=== PATIENT | female | born 1960 | race African-American/Black ===

== ENCOUNTER 2016-04-20 12:41 | Emergency (ER) | payer OTHER ==
[~2016-04-20] VITALS: Ht 167.6 cm; Wt 105.0 kg
[~2016-04-20 12:41] MED LIST: ALBU8I INH; AMLO5TAB22 PO; BUSP30TA PO; CELE40TA PO; CIPR500T4 PO; CLON-352 PO; LISI-586 PO; METF500 PO; PERP4TAB8 PO; PROP20TA3 PO; TRAM50 PO; TRAZ100 PO; TRIH5TAB2 PO; VIST50CA PO; ZIPR40 PO
[2016-04-20 12:43] VITALS: BP 189/96; PULSE 98; RESP 16; TEMP 98.1; O2SAT 96
[2016-04-20 12:53] VITALS: BP 162/85
[2016-04-20] MEDS ORDERED: DOXY100C PO (13:55)
[2016-04-20] MEDS ORDERED: BENZ1CAP34 PO (13:55)
--- NOTE | 2016-04-20 13:56 | PD ---
HPI Chief Complaint: Cold / Flu Symptoms Time Seen by Provider: 13:52 Travel History International Travel<30 days: No Contact w/Intl Traveler<30days: No Traveled to known affect area: No History of Present Illness HPI 55-year-old female presents to the emergency department for evaluation of cold symptoms for 1 week. Patient reports reports cough, congestion. She denies any abdominal pain. No fevers or chills. No chest pain. Patient reports history of psychiatric, hypertension, diabetes, chronic shoulder pain. Patient denies any fevers or chills. PFSH Past Medical History Asthma: No Autoimmune Disease: Yes Blood Disorders: No Anxiety: Yes Depression: Yes Heart Rhythm Problems: No Cancer: No Cardiac Catheterization: Yes Cardiovascular Problems: No High Cholesterol: No Chest Pain: Yes Congestive Heart Failure: No COPD: No Diabetes: Yes Patient Takes Glucophage: No Diminished Hearing: No Endocrine: No Gastrointestinal Disorders: No GERD: Yes Genitourinary: No Hepatitis: No Hiatal Hernia: No Hypertension: Yes Musculoskeletal: No Neurologic: No Psychiatric: No Reproductive: No Respiratory: No Immunizations Current: Yes Myocardial Infarction: No Schizophrenia: Yes Sleep Apnea: No Thyroid Disease: No Ulcer: No Tetanus Vaccination: > 5 Years PNEUMOCCOCAL Vaccine (Year): 2008 ?: Not Menopausal: Yes : 2 Para: 2 Miscarriage: 0 : 0 Tubal Ligation: Yes Past Surgical History Cholecystectomy: Yes Coronary Artery Bypass Graft: No Genitourinary Surgery: No Tonsillectomy: Yes Other Surgery: No Family History Family Myocardial Infarction: Yes (FATHER) Social History Alcohol Use: No Tobacco Use: No Substance Use: No Allergies-Medications (Allergen,Severity, Reaction): Coded Allergies: No Known Allergies (Verified , 04/20/16) Reported Meds & Prescriptions Reported Meds & Active Scripts Active Ultram (Tramadol HCl) 50 Mg Tab 50 Mg PO Q6H PRN FOR PAIN Cipro (Ciprofloxacin HCl) 500 Mg Tab 500 Mg PO BID Ventolin Hfa (Albuterol Sulfate) 8 Gm Aero 1 Puff INH ONCE * SHAKE WELL BEFORE USE * Reported Trazodone Hcl (Trazodone HCl) 100 Mg Tab 300 Mg PO HS Glucophage 500 mg (Metformin HCl) 500 Mg Tab 500 Mg PO BIDPC Amlodipine Besylate 5 mg (Amlodipine Besylate) 5 Mg Tab 1 Tab PO DAILY Propranolol (Propranolol HCl) 20 Mg Tab 20 Mg PO BID Perphenazine 4 mg (Perphenazine) 4 Mg Tab 4 Mg PO QID Buspar (Buspirone HCl) 30 Mg Tab 30 Mg PO TID Zestoretic 20/12.5 (Lisinopril/Hctz 20 mg/12.5 mg) 20 Mg/12.5 Mg Tab 1 Tab PO DAILY Clonidine Hcl (Clonidine HCl) 0.1 Mg Tab 0.1 Mg PO TID Vistaril 50 MG CAP (Hydroxyzine Pamoate) 50 Mg Cap 50 Mg PO TID Artane (Trihexyphenidyl HCl) 5 Mg Tab 5 Mg PO BID Celexa (Citalopram Hydrobromide) 40 Mg Tab 20 Mg PO DAILY Geodon (Ziprasidone) 40 Mg Cap 60 Mg PO BID Review of Systems Except as stated in HPI: all other systems reviewed are Neg Physical Exam Narrative GENERAL: Well-developed well-nourished female patient, ambulatory. Afebrile. Vital signs stable. SKIN: Warm and dry. HEAD: Normocephalic. Atraumatic. EYES: No scleral icterus. No injection or drainage. NECK: Supple, trachea midline. No JVD or lymphadenopathy. CARDIOVASCULAR: Regular rate and rhythm without murmurs, gallops, or rubs. RESPIRATORY: Breath sounds equal bilaterally. No accessory muscle use. Lungs sounds are clear to auscultation. GASTROINTESTINAL: Abdomen soft, non-tender, nondistended. MUSCULOSKELETAL: No cyanosis, or edema. BACK: Nontender without obvious deformity. No CVA tenderness. Data Data Last Documented VS Vital Signs Date Time Temp Pulse Resp B/P Pulse Ox O2 Delivery O2 Flow Rate FiO2 04/20/16 12:53 162/85 04/20/16 12:43 98.1 98 16 96 Room Air MDM Medical Decision Making Medical Screen Exam Complete: Yes Emergency Medical Condition: Yes Medical Record Reviewed: Yes Differential Diagnosis Bronchitis versus URI versus pneumonia Narrative Course 55-year-old female presents to the emergency department for evaluation of cold symptoms for 1 week. Physical exam is reassuring. Patient will be discharged with a prescription for doxycycline. She also be given a prescription for benzonatate capsules. She is encouraged to follow with her primary care physician. She is to return for any acute worsening of symptoms. Patient verbalizes agreement and understanding. Diagnosis Primary Impression: Bronchitis Referrals: Primary Care Physician 2 days Patient Instructions: Acute Bronchitis (ED), General Instructions Additional Instructions: Take antibiotic as directed until gone. Take benzonatate capsules as directed as needed for cough. Follow-up with your primary care physician. Return to the emergency department for any acute worsening of symptoms. Med/Other Pt SpecificInfo: Prescription(s) given Scripts Benzonatate 200 Mg [id number] Mg PO TID PRN (COUGH) #21 CAP Ref 0 Prov:Franny Lopez 04/20/16 Doxycycline Hyclate 100 Mg [id number] Mg PO BID #20 CAP Ref 0 Prov:Franny Lopez 04/20/16 Disposition: 01 DISCHARGE HOME Condition: Stable Franny Lopez Apr 20, 2016 13:56
== END 2016-04-20 14:08 | disposition home or self-care (01) ==
LOC: NEPB 12:41
DX: J40 Bronchitis, not specified as acute or chronic (principal); E11.9 Type 2 diabetes mellitus without complications; I10 Essential (primary) hypertension
CPT/HCPCS: 99282

== ENCOUNTER 2016-05-10 21:31 | Emergency (ER) | payer OTHER ==
[~2016-05-10] VITALS: Ht 167.6 cm; Wt 105.0 kg
[~2016-05-10 21:31] MED LIST changes: +BENZ1CAP34 PO; +DOXY100C PO
[2016-05-10 21:32] VITALS: BP 190/99; PULSE 108; RESP 20; TEMP 98.2; O2SAT 96
[2016-05-10] MEDS ORDERED: SODIUM CHLOR 0.9% 1000 ML INJ 1,000 ML IV SCH (21:50)
--- NOTE | 2016-05-10 21:52 | PD ---
HPI Chief Complaint: Flank/Kidney Pain Time Seen by Provider: 21:42 Travel History International Travel<30 days: No Contact w/Intl Traveler<30days: No Traveled to known affect area: No History of Present Illness HPI Patient's 55-year-old female presents with fairly abrupt onset of left flank sharp pain which is constant since about 1500 this afternoon. Patient states she's never had pain like this before. States she has a little burning when she is urinating but not significant. Had some mild nausea yesterday but not nauseous currently. Denies any fevers denies any diarrhea constipation. States she's not had a period since 2004. PFSH Past Medical History Asthma: No Autoimmune Disease: Yes Blood Disorders: No Anxiety: Yes Depression: Yes Heart Rhythm Problems: No Cancer: No Cardiac Catheterization: Yes Cardiovascular Problems: No High Cholesterol: No Chest Pain: Yes Congestive Heart Failure: No COPD: No Diabetes: Yes Patient Takes Glucophage: Yes Diminished Hearing: No Endocrine: No Gastrointestinal Disorders: No GERD: Yes Genitourinary: No Hepatitis: No Hiatal Hernia: No Hypertension: Yes Musculoskeletal: No Neurologic: No Psychiatric: No Reproductive: No Respiratory: No Immunizations Current: Yes Myocardial Infarction: No Schizophrenia: Yes Sleep Apnea: No Thyroid Disease: No Ulcer: No Tetanus Vaccination: Unknown Influenza Vaccination: Yes PNEUMOCCOCAL Vaccine (Year): 2008 ?: Not Menopausal: Yes : 2 Para: 2 Miscarriage: 0 : 0 Tubal Ligation: Yes Past Surgical History Cholecystectomy: Yes Coronary Artery Bypass Graft: No Genitourinary Surgery: No Tonsillectomy: Yes Other Surgery: No Family History Family Myocardial Infarction: Yes (FATHER) Social History Alcohol Use: No Tobacco Use: No Substance Use: No Allergies-Medications (Allergen,Severity, Reaction): Coded Allergies: No Known Allergies (Verified , 04/20/16) Reported Meds & Prescriptions Reported Meds & Active Scripts Active [place] (Hydrocodone-Acetaminophen) 5-325 mg Tab 1 Tab PO Q6H PRN 15 Days Benzonatate 200 Mg Cap 200 Mg PO TID PRN Doxycycline Hyclate 100 Mg Cap 100 Mg PO BID Ultram (Tramadol HCl) 50 Mg Tab 50 Mg PO Q6H PRN FOR PAIN Cipro (Ciprofloxacin HCl) 500 Mg Tab 500 Mg PO BID Ventolin Hfa (Albuterol Sulfate) 8 Gm Aero 1 Puff INH ONCE * SHAKE WELL BEFORE USE * Reported Trazodone HCl 100 Mg Tab 300 Mg PO HS Glucophage 500 mg (Metformin HCl) 500 Mg Tab 500 Mg PO BIDPC Amlodipine Besylate 5 mg (Amlodipine Besylate) 5 Mg Tab 1 Tab PO DAILY Propranolol (Propranolol HCl) 20 Mg Tab 20 Mg PO BID Perphenazine 4 mg (Perphenazine) 4 Mg Tab 4 Mg PO QID Buspar (Buspirone HCl) 30 Mg Tab 30 Mg PO TID Zestoretic 20/12.5 (Lisinopril/Hctz 20 mg/12.5 mg) 20 Mg/12.5 Mg Tab 1 Tab PO DAILY Clonidine HCl ER (Clonidine HCl (Adhd)) 0.1 Mg Tab 0.1 Mg PO TID Vistaril 50 MG CAP (Hydroxyzine Pamoate) 50 Mg Cap 50 Mg PO TID Artane (Trihexyphenidyl HCl) 5 Mg Tab 5 Mg PO BID Celexa (Citalopram Hydrobromide) 40 Mg Tab 20 Mg PO DAILY Geodon (Ziprasidone) 40 Mg Cap 60 Mg PO BID Review of Systems Except as stated in HPI: all other systems reviewed are Neg Physical Exam Narrative GENERAL: [Well-developed well-nourished no apparent distress SKIN: Warm and dry. No rash no lesion to her left flank HEAD: Atraumatic. Normocephalic. EYES: Pupils equal and round. No scleral icterus. No injection or drainage. ENT: No nasal bleeding or discharge. Mucous membranes pink and moist. NECK: Trachea midline. No JVD. CARDIOVASCULAR: Regular rate and rhythm. No murmur appreciated. RESPIRATORY: No accessory muscle use. Clear to auscultation. Breath sounds equal bilaterally. GASTROINTESTINAL: Abdomen soft, non-tender, nondistended. Hepatic and splenic margins not palpable. CVA tenderness in the left flank. No abdominal tenderness. MUSCULOSKELETAL: No obvious deformities. No clubbing. No cyanosis. No edema. NEUROLOGICAL: Awake and alert. No obvious cranial nerve deficits. Motor grossly within normal limits. Normal speech. PSYCHIATRIC: Appropriate mood and affect; insight and judgment normal. Data Data Last Documented VS Vital Signs Date Time Temp Pulse Resp B/P Pulse Ox O2 Delivery O2 Flow Rate FiO2 05/10/16 22:01 30 98 Room Air 05/10/16 21:46 112 05/10/16 21:32 98.2 190/99 Orders Urinalysis - C+S If Indicated (05/10/16 21:43) Ed Urine Pregnancytest Poc (05/10/16 21:43) Complete Blood Count With Diff (05/10/16 21:50) Comprehensive Metabolic Panel (05/10/16 21:50) Lipase (05/10/16 21:50) Lactic Acid (05/10/16 21:50) Prothrombin Time / Inr (Pt) (05/10/16 21:50) Act Partial Throm Time (Ptt) (05/10/16 21:50) Iv Access Insert/Monitor (05/10/16 21:50) Ecg Monitoring (05/10/16 21:50) Oximetry (05/10/16 21:50) Sodium Chlor 0.9% 1000 Ml Inj (Ns 1000 M (05/10/16 21:50) Sodium Chloride 0.9% Flush (Ns Flush) (05/10/16 22:00) Electrocardiogram (05/10/16 21:50) Ketorolac Inj (Toradol Inj) (05/10/16 22:00) Ondansetron Inj (Zofran Inj) (05/10/16 22:15) Ondansetron Inj (Zofran Inj) (05/10/16 22:15) Ct Abd/Pel W/O Iv Contrast (05/10/16 ) Morphine Inj (Morphine Inj) (05/10/16 22:30) Hydromorphone Pf Inj (Dilaudid Pf Inj) (05/10/16 23:45) Labs Laboratory Tests Test 05/10/16 21:45 White Blood Count 9.4 TH/MM3 Red Blood Count 4.58 MIL/MM3 Hemoglobin 11.8 GM/DL Hematocrit 36.9 % Mean Corpuscular Volume 80.5 FL Mean Corpuscular Hemoglobin 25.7 PG Mean Corpuscular Hemoglobin 32.0 % Concent Red Cell Distribution Width 13.8 % Platelet Count 204 TH/MM3 Mean Platelet Volume 9.2 FL Neutrophils (%) (Auto) 64.8 % Lymphocytes (%) (Auto) 23.2 % Monocytes (%) (Auto) 10.7 % Eosinophils (%) (Auto) 0.8 % Basophils (%) (Auto) 0.5 % Neutrophils # (Auto) 6.1 TH/MM3 Lymphocytes # (Auto) 2.2 TH/MM3 Monocytes # (Auto) 1.0 TH/MM3 Eosinophils # (Auto) 0.1 TH/MM3 Basophils # (Auto) 0.0 TH/MM3 CBC Comment DIFF FINAL Differential Comment Prothrombin Time 11.0 SEC Prothromb Time International 1.0 RATIO Ratio Activated Partial 24.6 SEC Thromboplast Time Sodium Level 144 MEQ/L Potassium Level 3.5 MEQ/L Chloride Level 104 MEQ/L Carbon Dioxide Level 30.4 MEQ/L Anion Gap 10 MEQ/L Blood Urea Nitrogen 15 MG/DL Creatinine 1.43 MG/DL Estimat Glomerular Filtration 46 ML/MIN Rate Random Glucose 146 MG/DL Lactic Acid Level 1.3 mmol/L Calcium Level 9.0 MG/DL Total Bilirubin 0.6 MG/DL Aspartate Amino Transf 28 U/L (AST/SGOT) Alanine Aminotransferase 20 U/L (ALT/SGPT) Alkaline Phosphatase 61 U/L Total Protein 8.7 GM/DL Albumin 3.9 GM/DL Lipase 74 U/L [facility] Medical Decision Making Medical Screen Exam Complete: Yes Emergency Medical Condition: Yes Interpretation(s) EKG shows sinus tachycardia with PAC, normal axis normal R-wave progression. No concerning ST T changes. This normal EKG except for PAC. Differential Diagnosis Kidney stone, urinary tract infection, pyelonephritis, diverticulitis. Narrative Course Patient roomed emerged permit initially given Toradol without response. She was given Dilaudid and on revisit she is sleeping soundly in no apparent distress. Last 24 hours Impressions Abdomen/Pelvis CT 05/10/16 0000 Signed Impressions: Service Date/Time: Tuesday, May 10, 2016 23:52 - CONCLUSION: 1. I believe patient's symptoms are due to at 2.5 mm stone which recently passed through the left UVJ into the base of the bladder. There is mild left-sided pelvocaliectasis and hydroureter with mild prominence of the left kidney. 2. Patient is status post cholecystectomy 3. 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 Daniel Hernandez MD This was discussed with the patient and recommended that she have a urine test that she is unable to provide one at this time. She would like to go home currently. Discussed with her need follow-up with a urologist and return to ED criteria. Diagnosis Primary Impression: Kidney stone Referrals: Tony Espino MD Med/Other Pt SpecificInfo: Prescription(s) given Scripts Hydrocodone-Acetaminophen ([place])5-325 mg Tab1 Tab PO Q6H PRN (PAIN) 15 Days Ref 0 Prov:Mario Butterfield MD 05/11/16 Disposition: 01 DISCHARGE HOME Condition: Stable Mario Butterfield MD May 10, 2016 21:52
[2016-05-10] MEDS ORDERED: SODIUM CHLORIDE 0.9% FLUSH 5 ML FLUSH IVF PRN (22:00)
[2016-05-10] MEDS ORDERED: KETOROLAC TROMETHAMINE 30 MG/ML (IVP) VIAL IVP ONE (22:00)
[2016-05-10 22:01] VITALS: RESP 30; O2SAT 98
[2016-05-10] MEDS ORDERED: ONDANSETRON HCL 4 MG/2 ML VIAL IV PUSH ONE (22:15)
[2016-05-10] MEDS ORDERED: ONDANSETRON HCL 4 MG/2 ML VIAL ONE (22:15)
[2016-05-10 22:23] LABS: AUTOMATED NEUTROPHIL # 6.1 TH/MM3 (1.8-7.7); BASOPHIL % 0.5 % (0.0-2.0); EOSINOPHIL # 0.1 TH/MM3 (0-0.4); EOSINOPHIL % 0.8 % (0.0-4.0); HEMATOCRIT 36.9 % (35.0-46.0); HEMO FLAGS DIFF FINAL; LYMPH % 23.2 % (9.0-44.0); LYMPHOCYTE # 2.2 TH/MM3 (1.0-4.8); MEAN CELL VOLUME 80.5 FL (80.0-100.0); MEAN CORPUSCULAR HEMOGLOBIN 25.7 PG (27.0-34.0); MONO % 10.7 % (0.0-8.0); NEUT % 64.8 % (16.0-70.0); PLATELET COUNT 204 TH/MM3 (150-450); RED BLOOD COUNT 4.58 MIL/MM3 (4.00-5.30); RED CELL DISTRIBUTION WIDTH 13.8 % (11.6-17.2); WHITE BLOOD COUNT 9.4 TH/MM3 (4.0-11.0)
[2016-05-10] MEDS ORDERED: MORPHINE SULFATE 8 MG/ML INJ IV PUSH ONE (22:30)
[2016-05-10 23:10] LABS: ALKALINE PHOSPHATASE 61 U/L (45-117); ALT (GPT) 20 U/L (10-53); ANION GAP 10 MEQ/L (5-15); AST (GOT) 28 U/L (15-37); BICARBONATE 30.4 MEQ/L (21.0-32.0); BLOOD UREA NITROGEN 15 MG/DL (7-18); CHLORIDE 104 MEQ/L (98-107); GLOMERULAR FILTRATION RATE 46 ML/MIN (>89); POTASSIUM 3.5 MEQ/L (3.5-5.1); SODIUM (NA) 144 MEQ/L (136-145); TOTAL BILIRUBIN ADULT 0.6 MG/DL (0.2-1.0)
[2016-05-10 23:34] LABS: APTT (PATIENT) 24.6 SEC (24.3-30.1)
[2016-05-10] MEDS ORDERED: HYDROmorphone HCL PF 1 MG/ML VIAL IV PUSH ONE (23:45)
--- NOTE | 2016-05-11 00:14 | RADRPT ---
EXAM DATE/TIME: 05/10/2016 23:52 [facility] COMPARISON: CT ABDOMEN & PELVIS W/O CONTRAST, January 02, 2016, 14:27. INDICATIONS : Left flank pain. ORAL CONTRAST: No oral contrast ingested. RADIATION DOSE: 19.81 CTDIvol (mGy) MEDICAL HISTORY : Hypertension. Cardiovascular disease Gastroesophageal reflux disease.Diabetes SURGICAL HISTORY : Cholecystectomy. Tubal ligation. ENCOUNTER: Initial ACUITY: 1 day PAIN SCALE: 7/10 LOCATION: Left flank TECHNIQUE: Volumetric scanning of the abdomen and pelvis was performed. Using automated exposure control and ad justment of the mA and/or kV according to patient size, radiation dose was kept as low as reasonably achievable to obtain optimal diagnostic quality images. FINDINGS: LOWER LUNGS: The visualized lower lungs are clear. LIVER: Homogeneous density without lesion. There is no dilation of the biliary tree. Patient is status post cholecystectomy. SPLEEN: Normal size without lesion. PANCREAS: Within normal limits. KIDNEYS: Left kidney is slightly more prominent than the right and there is mild pelvocaliectasis and hydroure ter. There is a 2.5 mm stone in the base of the left bladder which likely recently passed the left UV J. ADRENAL GLANDS: Within normal limits. VASCULAR: There is no aortic aneurysm. BOWEL/MESENTERY: The stomach, small bowel, and colon demonstrate no acute abnormality. There is no free intraperitone al air or fluid. ABDOMINAL WALL: Within normal limits. RETROPERITONEUM: There is no lymphadenopathy. BLADDER: No wall thickening or mass. REPRODUCTIVE: Within normal limits. INGUINAL: There is no lymphadenopathy or hernia. MUSCULOSKELETAL: There is some bony bridging along the non-synovial portion of the left SI joint posteriorly. This is stable. No acute fracture. CONCLUSION: 1. I believe patient's symptoms are due to at 2.5 mm stone which recently passed through the left UVJ into the base of the bladder. There is mild left-sided pelvocaliectasis and hydroureter with mild pr ominence of the left kidney. 2. Patient is status post cholecystectomy 3. 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 Daniel Hernandez MD on May 11, 2016 at 0:06 Board Certified Radiologist. This report was verified electronically.
[2016-05-11] MEDS ORDERED: NORC5TAB PO (00:29)
--- NOTE | 2016-05-11 10:21 | EKG ---
Date Performed: 05/10/2016 Time Performed: 22:32:51 PTAGE: 55 years EKG: SINUS TACHYCARDIA WITH OCCASIONAL SUPRAVENTRICULAR PREMATURE COMPLEXES NONSPECIFIC T-WAVE A BNORMALITY ABNORMAL RHYTHM ECG Compared to prior tracing no significant change PREVIOUS TRACING : 01/02/2016 14.53 DOCTOR: Bryson Buckley Interpretating Date/Time 05/11/2016 10:18:14
== END 2016-05-11 00:54 | disposition home or self-care (01) ==
LOC: NEPC 21:31
DX: N20.0 Calculus of kidney (principal); E11.9 Type 2 diabetes mellitus without complications; I10 Essential (primary) hypertension; Z79.84 Long term (current) use of oral hypoglycemic drugs; Z90.49 Acquired absence of other specified parts of digestive tract
CPT/HCPCS: 74176; 80053; 83605; 83690; 84703; 85025; 85610; 85730; 93005; 96374; 96375; 99284; J1170; J1885; J2270; J2405; J7030

== ENCOUNTER 2016-05-15 16:34 | Emergency (ER) | payer OTHER ==
[~2016-05-15] VITALS: Ht 167.6 cm; Wt 110.0 kg
[~2016-05-15 16:34] MED LIST changes: +NORC5TAB PO
[2016-05-15 17:30] VITALS: BP 189/101; PULSE 93; RESP 20; O2SAT 97
--- NOTE | 2016-05-15 17:51 | PD ---
HPI Chief Complaint: Pain: Acute or Chronic Time Seen by Provider: 17:21 Travel History International Travel<30 days: No Contact w/Intl Traveler<30days: No Traveled to known affect area: No History of Present Illness HPI 55-year-old female complains of facial swelling, lower extremity pain and swelling, left sided abdominal pain. Patient was seen in emergency room 5 days ago for left-sided flank pain. Patient had blood tests and CT scan done at that time which showed recently passed stone with hydroureter. Patient was unable to provide urine sample at that time. Patient was discharged with prescription for hydrocodone for pain and advised to follow up with personal physician and urologist. Patient was seen at [facility] 4 days ago and again 2 days ago with persistent symptoms and swelling of the face and extremity with pain and lower extremity. Patient states that she had repeated CT of the abdomen and blood tests and was told that she has UTI. Patient was given prescription of Bactrim DS which she has been taking them. Patient states that she had persistent left-sided abdominal pain and increase in pain of the lower extremity since then. Patient denies any problem with swallowing. Patient states that she has mild intermittent chest pain and shortness of breath also. Patient has history of hypertension, diabetes, GERD, anxiety, depression, schizophrenia. Patient status post tubal ligation, cholecystectomy and tonsillectomy. PFSH Past Medical History Asthma: No Autoimmune Disease: Yes Blood Disorders: No Anxiety: Yes Depression: Yes Heart Rhythm Problems: No Cancer: No Cardiac Catheterization: Yes Cardiovascular Problems: No High Cholesterol: No Chest Pain: Yes Congestive Heart Failure: No COPD: No Diabetes: Yes Patient Takes Glucophage: Yes Diminished Hearing: No Endocrine: No Gastrointestinal Disorders: No GERD: Yes Genitourinary: No Hepatitis: No Hiatal Hernia: No Hypertension: Yes Musculoskeletal: No Neurologic: No Psychiatric: No Reproductive: No Respiratory: No Immunizations Current: Yes Myocardial Infarction: No Schizophrenia: Yes Sleep Apnea: No Thyroid Disease: No Ulcer: No PNEUMOCCOCAL Vaccine (Year): 2008 ?: Not Menopausal: Yes : 2 Para: 2 Miscarriage: 0 : 0 Tubal Ligation: Yes Past Surgical History Cholecystectomy: Yes Coronary Artery Bypass Graft: No Genitourinary Surgery: No Tonsillectomy: Yes Other Surgery: No Family History Family Myocardial Infarction: Yes (FATHER) Social History Alcohol Use: No Tobacco Use: No Substance Use: No Allergies-Medications (Allergen,Severity, Reaction): Coded Allergies: No Known Allergies (Verified , 05/15/16) Reported Meds & Prescriptions Reported Meds & Active Scripts Active Potassium Chloride ER (Potassium Chloride) 10 Meq Cap 10 Meq PO DAILY Lasix (Furosemide) 20 Mg Tab 20 Mg PO DAILY Cipro (Ciprofloxacin HCl) 500 Mg Tab 500 Mg PO BID [place] (Hydrocodone-Acetaminophen) 5-325 mg Tab 1 Tab PO Q6H PRN 15 Days Reported Amlodipine (Amlodipine Besylate) 5 Mg Tab 5 Mg PO DAILY Buspirone (Buspirone HCl) 30 Mg Tab 30 Mg PO TID Clonidine ER 12 HR (Clonidine HCl) 0.1 Mg Tab 0.1 Mg PO TID Vistaril (Hydroxyzine Pamoate) 50 Mg Cap 50 Mg PO TID Zestoretic (Lisinopril-Hctz) 20-12.5 Mg Tab 1 Tab PO DAILY Metformin (Metformin HCl) 500 Mg Tab 500 Mg PO BID With meals Perphenazine 4 Mg Tab 4 Mg PO QID Propranolol (Propranolol HCl) 20 Mg Tab 20 Mg PO TID Bactrim (Sulfamethoxazole-Trimethoprim) 400-80 Mg Tab 1 Tab PO BID Tramadol (Tramadol HCl) 50 Mg Tab 50 Mg PO Q6H PRN Trazodone (Trazodone HCl) 300 Mg Tab 300 Mg PO HS Trihexyphenidyl (Trihexyphenidyl HCl) 5 Mg Tab 5 Mg PO BID Geodon (Ziprasidone) 60 Mg Cap 60 Mg PO BID Gabapentin 300 Mg Cap 300 Mg PO TID Review of Systems General / Constitutional: No: Fever Eyes: No: Visual changes HENT: No: Headaches Cardiovascular: No: Chest Pain or Discomfort Respiratory: No: Shortness of Breath Gastrointestinal: Positive: Abdominal Pain Genitourinary: No: Dysuria Musculoskeletal: Positive: Pain Skin: No Rash Neurologic: No: Weakness Psychiatric: No: Depression Endocrine: No: Polydipsia Hematologic/Lymphatic: No: Easy Bruising Physical Exam Narrative GENERAL: Well-nourished, well-developed patient. SKIN: Warm and dry. HEAD: Normocephalic. EYES: No scleral icterus. No injection or drainage. NECK: Supple, trachea midline. No JVD or lymphadenopathy. CARDIOVASCULAR: Regular rate and rhythm without murmurs, gallops, or rubs. RESPIRATORY: Breath sounds equal bilaterally. No accessory muscle use. GASTROINTESTINAL: Abdomen soft, nondistended. She has mild tenderness on palpation left side abdomen. No rebound tenderness. No mass. MUSCULOSKELETAL: No cyanosis, or edema. BACK: Nontender without obvious deformity. No CVA tenderness. Neurologic exam normal. Data Data Last Documented VS Vital Signs Date Time Temp Pulse Resp B/P Pulse Ox O2 Delivery O2 Flow Rate FiO2 05/15/16 19:53 87 21 05/15/16 19:53 165/100 96 Room Air Orders Electrocardiogram (05/15/16 17:35) Complete Blood Count With Diff (05/15/16 17:35) Comprehensive Metabolic Panel (05/15/16 17:35) Creatine Kinase (Cpk) (05/15/16 17:35) Prothrombin Time / Inr (Pt) (05/15/16 17:35) Act Partial Throm Time (Ptt) (05/15/16 17:35) Lipase (05/15/16 17:35) Urinalysis - C+S If Indicated (05/15/16 17:35) Thyroid Stimulating Hormone (05/15/16 17:35) Chest, Single Ap (05/15/16 17:35) Iv Access Insert/Monitor (05/15/16 17:35) Ecg Monitoring (05/15/16 17:35) Oximetry (05/15/16 17:35) Ct Abd/Pel W Iv Contrast(Rout) (05/15/16 17:40) Troponin I (05/15/16 17:47) Urine Culture (05/15/16 18:30) Iohexol 350 Inj (Omnipaque 350 Inj) (05/15/16 19:32) Labs Laboratory Tests Test 05/15/16 05/15/16 17:51 18:30 White Blood Count 7.2 TH/MM3 Red Blood Count 4.21 MIL/MM3 Hemoglobin 10.8 GM/DL Hematocrit 33.8 % Mean Corpuscular Volume 80.4 FL Mean Corpuscular Hemoglobin 25.7 PG Mean Corpuscular Hemoglobin 32.0 % Concent Red Cell Distribution Width 14.4 % Platelet Count 195 TH/MM3 Mean Platelet Volume 9.0 FL Neutrophils (%) (Auto) 49.8 % Lymphocytes (%) (Auto) 38.2 % Monocytes (%) (Auto) 10.4 % Eosinophils (%) (Auto) 0.5 % Basophils (%) (Auto) 1.1 % Neutrophils # (Auto) 3.6 TH/MM3 Lymphocytes # (Auto) 2.7 TH/MM3 Monocytes # (Auto) 0.7 TH/MM3 Eosinophils # (Auto) 0.0 TH/MM3 Basophils # (Auto) 0.1 TH/MM3 CBC Comment DIFF FINAL Differential Comment Prothrombin Time 11.1 SEC Prothromb Time International 1.0 RATIO Ratio Activated Partial 24.3 SEC Thromboplast Time Sodium Level 142 MEQ/L Potassium Level 3.8 MEQ/L Chloride Level 105 MEQ/L Carbon Dioxide Level 31.0 MEQ/L Anion Gap 6 MEQ/L Blood Urea Nitrogen 17 MG/DL Creatinine 0.95 MG/DL Estimat Glomerular Filtration 74 ML/MIN Rate Random Glucose 93 MG/DL Calcium Level 8.8 MG/DL Total Bilirubin 0.4 MG/DL Aspartate Amino Transf 31 U/L (AST/SGOT) Alanine Aminotransferase 31 U/L (ALT/SGPT) Alkaline Phosphatase 51 U/L Total Creatine Kinase 170 U/L Troponin I LESS THAN 0.02 NG/ML Total Protein 8.0 GM/DL Albumin 3.9 GM/DL Lipase 65 U/L Thyroid Stimulating Hormone 2.440 uIU/ML 3rd Gen Urine Color YELLOW Urine Turbidity HAZY Urine pH 7.5 Urine Specific [place] 1.020 Urine Protein 30 mg/dL Urine Glucose (UA) NEG mg/dL Urine Ketones NEG mg/dL Urine Occult Blood NEG Urine Nitrite NEG Urine Bilirubin NEG Urine Urobilinogen LESS THAN 2.0 MG/DL Urine Leukocyte Esterase MOD Urine WBC 16 /hpf Urine Squamous Epithelial 1 /hpf Cells Urine Mucus FEW /lpf Microscopic Urinalysis Comment CULTURE INDICATED MDM Medical Decision Making Medical Screen Exam Complete: Yes Emergency Medical Condition: Yes Interpretation(s) Last Impressions Abdomen/Pelvis CT 05/15/161739 Signed Impressions: Service Date/Time: Sunday, May 15, 2016 19:22 - CONCLUSION: 1. No acute abnormality seen. 2. Fatty liver. 3. Tiny stone seen in the urinary bladder a few days ago has passed. No recurrent or residual hydronephrosis or hydroureter. 4. 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 Sourav Funk MD Chest X-Ray 05/15/16 1591 Signed Impressions: Service Date/Time: Sunday, May 15, 2016 17:55 - CONCLUSION: No evidence of acute cardiopulmonary disease. Sourav Funk MD 1956 PM. CBC within normal limit. CMP within normal limit. Cardiac enzymes are normal. UA positive for WBC. Differential Diagnosis Differential diagnoses including gastritis, PUD, pancreatitis, cholecystitis, colitis, UTI, pyelonephritis, nephrolithiasis, generalized edema, myalgia arthralgia Narrative Course 55-year-old female with complaints of extremity swelling, facial swelling and persistent left-sided abdominal pain. Patient has been to the emergency room at [facility] recently. Patient is on Bactrim DS for UTI. Diagnosis Primary Impression: UTI (urinary tract infection) Qualified Code: N30.00 - Acute cystitis without hematuria Additional Impression: Edema Qualified Code: R60.9 - Edema, unspecified type Patient Instructions: General Instructions Additional Instructions: Stop Bactrim DS. Cipro as directed. Follow-up with personal physician. Return if worse. Med/Other Pt SpecificInfo: Prescription(s) given, Existing Med Changed, Med Stopped Scripts Hydrocodone-Acetaminophen ([place])5-325 mg Tab1 Tab PO Q6H PRN (PAIN) #20 TAB Prov:Lamberto Oliveros MD 05/15/16 Potassium Chloride ER 10 Meq Cap10 Meq PO DAILY #5 CAP Ref 0 Prov:Lamberto Oliveros MD 05/15/16 Furosemide (Lasix)20 Mg Tab20 Mg PO DAILY #5 TAB Ref 0 Prov:Lamberto Oliveros MD 05/15/16 Ciprofloxacin (Cipro)500 Mg Ore966 Mg PO BID #14 TAB Prov:Lamberto Oliveros MD 05/15/16 Disposition: 01 DISCHARGE HOME Condition: Stable Lamberto Oliveros MD May 15, 2016 17:51
[2016-05-15 18:04] LABS: AUTOMATED NEUTROPHIL # 3.6 TH/MM3 (1.8-7.7); BASOPHIL # 0.1 TH/MM3 (0-0.2); BASOPHIL % 1.1 % (0.0-2.0); EOSINOPHIL % 0.5 % (0.0-4.0); HEMATOCRIT 33.8 % (35.0-46.0); HEMO FLAGS DIFF FINAL; LYMPH % 38.2 % (9.0-44.0); LYMPHOCYTE # 2.7 TH/MM3 (1.0-4.8); MEAN CELL VOLUME 80.4 FL (80.0-100.0); MEAN CORPUSCULAR HEMOGLOBIN 25.7 PG (27.0-34.0); MONO % 10.4 % (0.0-8.0); NEUT % 49.8 % (16.0-70.0); PLATELET COUNT 195 TH/MM3 (150-450); RED BLOOD COUNT 4.21 MIL/MM3 (4.00-5.30); RED CELL DISTRIBUTION WIDTH 14.4 % (11.6-17.2); WHITE BLOOD COUNT 7.2 TH/MM3 (4.0-11.0)
[2016-05-15 18:12] VITALS: O2SAT 97
[2016-05-15] MEDS ORDERED: GABA300C5 PO (18:21)
[2016-05-15] MEDS ORDERED: GEOD60CA PO (18:21)
[2016-05-15] MEDS ORDERED: AMLO5TAB2 PO ×2 (18:21→18:32)
[2016-05-15] MEDS ORDERED: TRIH5TAB2 PO (18:21)
[2016-05-15] MEDS ORDERED: TRAM50TA PO (18:21)
[2016-05-15] MEDS ORDERED: TRAZ300T2 PO (18:21)
--- NOTE | 2016-05-15 18:24 | RADRPT ---
EXAM DATE/TIME: 05/15/2016 17:55 [facility] COMPARISON: CHEST SINGLE AP, May 07, 2015, 19:42. INDICATIONS : Whole body pain, including chest and lower legs with shortness of breath. MEDICAL HISTORY : None. SURGICAL HISTORY : None. ENCOUNTER: Initial ACUITY: 4 - 6 days PAIN SCORE: 4/10 LOCATION: Bilateral chest FINDINGS: A single view of the chest demonstrates the lungs to be symmetrically aerated without evidence of mas s, infiltrate or effusion. The cardiomediastinal contours are unremarkable. Osseous structures are intact. CONCLUSION: No evidence of acute cardiopulmonary disease. Sourav Funk MD on May 15, 2016 at 18:22 Board Certified Radiologist. This report was verified electronically.
[2016-05-15] MEDS ORDERED: BACT400T PO (18:25)
[2016-05-15] MEDS ORDERED: METF500T PO (18:27)
[2016-05-15] MEDS ORDERED: PROP20TA3 PO (18:27)
[2016-05-15] MEDS ORDERED: PERP4TAB8 PO (18:27)
[2016-05-15 18:29] LABS: ANION GAP 6 MEQ/L (5-15); AST (GOT) 31 U/L (15-37); BLOOD UREA NITROGEN 17 MG/DL (7-18); CHLORIDE 105 MEQ/L (98-107); GLOMERULAR FILTRATION RATE 74 ML/MIN (>89); POTASSIUM 3.8 MEQ/L (3.5-5.1); SODIUM (NA) 142 MEQ/L (136-145)
[2016-05-15] MEDS ORDERED: CLON-409 PO (18:31)
[2016-05-15] MEDS ORDERED: NORC5TAB PO ×2 (18:31→20:10)
[2016-05-15] MEDS ORDERED: LISI-586 PO (18:31)
[2016-05-15] MEDS ORDERED: CLON0.1T PO (18:31)
[2016-05-15] MEDS ORDERED: VIST50CA PO (18:31)
[2016-05-15 18:32] LABS: APTT (PATIENT) 24.3 SEC (24.3-30.1); PROTHROMBIN TIME - PATIENT 11.1 SEC (9.8-11.6)
[2016-05-15] MEDS ORDERED: BUSP30TA PO (18:32)
[2016-05-15 18:39] LABS: ALKALINE PHOSPHATASE 51 U/L (45-117); ALT (GPT) 31 U/L (10-53); CREATINE KINASE 170 U/L (26-192); TOTAL BILIRUBIN ADULT 0.4 MG/DL (0.2-1.0)
[2016-05-15 18:45] LABS: BLOOD, URINE NEG (NEG); COMMENT (UR) CULTURE INDICATED; CULTURE IF INDICATED CULTURE INDICATED; GLUCOSE,URINE NEG (NEG); KETONE, URINE NEG (NEG); MUCUS URINE FEW /lpf (OCC); NITRITE,URINE NEG (NEG); PH, URINE 7.5 (5.0-8.5); SQUAMOUS EPITHELIAL CELL URINE 1 /hpf (0-5); URINE COLOR YELLOW (YELLW/STRAW)
[2016-05-15] MEDS ORDERED: IOHEXOL 350 MG/ML 10 ML VIAL (for RAD DIAG) IV ONE (19:32)
--- NOTE | 2016-05-15 19:45 | RADRPT ---
EXAM DATE/TIME: 05/15/2016 19:22 [facility] COMPARISON: CT ABDOMEN & PELVIS W/O CONTRAST, May 10, 2016, 23:52. CT ABDOMEN & PELVIS W CONTRAST, November 072013, 2:11. INDICATIONS : Persistent left sided abdominal pain; status-post cholecystectomy; recent renal stone 5 days ago. IV CONTRAST: 100 cc Omnipaque 350 (iohexol) IV ORAL CONTRAST: No oral contrast ingested. RADIATION DOSE: 19.53 CTDIvol (mGy) MEDICAL HISTORY : Hypertension. Gastroesophageal reflux disease. Diabetes mellitus type 2. SURGICAL HISTORY : Cholecystectomy. Tubal ligation. ENCOUNTER: [place] ACUITY: 4 - 6 days PAIN SCALE: 8/10 LOCATION: Left Abdomen/pelvis TECHNIQUE: Volumetric scanning of the abdomen and pelvis was performed. Using automated exposure control and ad justment of the mA and/or kV according to patient size, radiation dose was kept as low as reasonably achievable to obtain optimal diagnostic quality images. FINDINGS: LOWER LUNGS: The visualized lower lungs are clear. LIVER: Liver is fatty infiltrated. Previous cholecystectomy. SPLEEN: Normal size without lesion. PANCREAS: Within normal limits. KIDNEYS: Normal in size and shape. There is no mass, stone or hydronephrosis. ADRENAL GLANDS: Within normal limits. VASCULAR: There is no aortic aneurysm. BOWEL/MESENTERY: The stomach, small bowel, and colon demonstrate no acute abnormality. There is no free intraperitone al air or fluid. ABDOMINAL WALL: Within normal limits. RETROPERITONEUM: There is no lymphadenopathy. BLADDER: Tiny bladder stone cleared in the interim. No persistent hydronephrosis or hydroureter seen. REPRODUCTIVE: Within normal limits. INGUINAL: There is no lymphadenopathy or hernia. MUSCULOSKELETAL: No acute bony abnormality demonstrated. 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 CONCLUSION: 1. No acute abnormality seen. 2. Fatty liver. 3. Tiny stone seen in the urinary bladder a few days ago has passed. No recurrent or residual hydrone phrosis or hydroureter. 4. 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 Sourav Funk MD on May 15, 2016 at 19:40 Board Certified Radiologist. This report was verified electronically.
[2016-05-15 19:53] VITALS: BP 165/100; PULSE 98; RESP 22; O2SAT 96
[2016-05-15] MEDS ORDERED: CIPR-9 PO (20:07)
[2016-05-15] MEDS ORDERED: POTA10CA PO (20:09)
[2016-05-15] MEDS ORDERED: FURO1TAB62 PO (20:09)
[2016-05-15] MEDS ORDERED: KETOROLAC TROMETHAMINE 30 MG/ML (IVP) VIAL IV PUSH ONE (20:30)
--- NOTE | 2016-05-16 14:14 | EKG ---
Date Performed: 05/15/2016 Time Performed: 16:47:21 PTAGE: 55 years EKG: Sinus rhythm NONSPECIFIC T-WAVE ABNORMALITY BORDERLINE ECG Compared to prior tracing no significant change PREVIOUS TRACING : 05/10/16 DOCTOR: Rupert Rose Interpretating Date/Time 05/16/2016 14:13:53
== END 2016-05-15 20:55 | disposition home or self-care (01) ==
LOC: NEPB 16:34
DX: N39.0 Urinary tract infection, site not specified (principal); R60.9 Edema, unspecified; E11.9 Type 2 diabetes mellitus without complications; I10 Essential (primary) hypertension; M79.606 Pain in leg, unspecified
CPT/HCPCS: 71010; 74177; 80053; 81001; 82550; 83690; 84443; 84484; 85025; 85610; 85730; 87086; 93005; 96374; 99284; J1885; Q9967

== ENCOUNTER 2016-09-04 23:28 | Inpatient (IN) | payer OTHER, MEDICARE ==
[~2016-09-04] VITALS: Ht 167.6 cm; Wt 110.9 kg
[~2016-09-04 23:28] MED LIST changes: -ALBU8I INH; +AMLO5TAB2 PO; -AMLO5TAB22 PO; +BACT400T PO; -BENZ1CAP34 PO; -CELE40TA PO; +CIPR-9 PO; -CIPR500T4 PO; -CLON-352 PO; +CLON-409 PO; -DOXY100C PO; +FURO1TAB62 PO; +GABA300C5 PO; +GEOD60CA PO; -METF500 PO; +METF500T PO; +POTA10CA PO; -TRAM50 PO; +TRAM50TA PO; -TRAZ100 PO; +TRAZ300T2 PO; -ZIPR40 PO
[2016-09-04 23:34] VITALS: BP 171/100; PULSE 133; TEMP 98.3; O2SAT 93
[2016-09-05] VITALS (11 sets, daily range): BP systolic 118–189; BP diastolic 70–95; PULSE 61–103; RESP 18–22; TEMP 96.7–98.1; O2SAT 96–99
[2016-09-05] MEDS ORDERED: RESP: ALBUTEROL 2.5 MG/IPRATROPIUM 0.5 MG NEB (SCH) INH ONE
--- NOTE | 2016-09-05 | PD ---
HPI Chief Complaint: Respiratory Distress Time Seen by Provider: 23:51 Travel History International Travel<30 days: No Contact w/Intl Traveler<30days: No Traveled to known affect area: No History of Present Illness HPI 55-year-old female presents to the emergency department by EMS transportation for shortness of breath and congested cough. Patient states she has had history illness 3 weeks and has completed a course of azithromycin as well as has received a prescription for a steroid and 4 and inhaler. Patient states that she does not feel like she is improving in fact reports that she thinks her symptoms are worsening. Patient has chest tightness associated with cough but does not report any pleuritic pain or chest pain. Patient has history of retention diabetes but denies history of asthma COPD denies tobacco use or alcohol use. Patient's had no lower extremity pain or swelling. Patient does not report any orthopnea or PND. Patient denies fever or chills. Patient has had some scant phlegm production panel yellow. Patient denies hemoptysis. Patient denies injury or fall. No recent long distance travel protracted bedrest or surgery. PFSH Past Medical History Narrative Medical Anxiety depression hypertension diabetes cholecystectomy tonsillectomy family history CAD no tobacco use; nursing notes reviewed Asthma: No Autoimmune Disease: Yes Blood Disorders: No Anxiety: Yes Depression: Yes Heart Rhythm Problems: No Cancer: No Cardiac Catheterization: Yes Cardiovascular Problems: No High Cholesterol: No Chest Pain: Yes Congestive Heart Failure: No COPD: No Diabetes: Yes Patient Takes Glucophage: Yes (metformin 500mg 2100 09/04/16) Diminished Hearing: No Endocrine: No Gastrointestinal Disorders: No GERD: Yes Genitourinary: No Hepatitis: No Hiatal Hernia: No Hypertension: Yes Musculoskeletal: No Neurologic: No Psychiatric: No Reproductive: No Respiratory: No Immunizations Current: Yes Myocardial Infarction: No Schizophrenia: Yes Sleep Apnea: No Thyroid Disease: No Ulcer: No PNEUMOCCOCAL Vaccine (Year): 2008 ?: Not Menopausal: Yes : 2 Para: 2 Miscarriage: 0 : 0 Tubal Ligation: Yes Past Surgical History Cholecystectomy: Yes Coronary Artery Bypass Graft: No Genitourinary Surgery: No Tonsillectomy: Yes Other Surgery: No Family History Family Myocardial Infarction: Yes (FATHER) Social History Alcohol Use: No Tobacco Use: No Substance Use: No Allergies-Medications (Allergen,Severity, Reaction): Coded Allergies: No Known Allergies (Verified , 05/15/16) Reported Meds & Prescriptions Reported Meds & Active Scripts Active Reported Amlodipine (Amlodipine Besylate) 5 Mg Tab 5 Mg PO DAILY Buspirone (Buspirone HCl) 30 Mg Tab 30 Mg PO TID Clonidine ER 12 HR (Clonidine HCl) 0.1 Mg Tab 0.1 Mg PO TID Vistaril (Hydroxyzine Pamoate) 50 Mg Cap 50 Mg PO TID Zestoretic (Lisinopril-Hctz) 20-12.5 Mg Tab 1 Tab PO DAILY Metformin (Metformin HCl) 500 Mg Tab 500 Mg PO BID With meals Propranolol (Propranolol HCl) 20 Mg Tab 20 Mg PO TID Trazodone (Trazodone HCl) 300 Mg Tab 300 Mg PO HS Trihexyphenidyl (Trihexyphenidyl HCl) 5 Mg Tab 5 Mg PO BID [place] (Ziprasidone) 60 Mg Cap 60 Mg PO BID Gabapentin 300 Mg Cap 300 Mg PO TID Review of Systems Except as stated in HPI: all other systems reviewed are Neg Physical Exam Narrative GENERAL: Well-developed well-nourished female appears anxious in respiratory distress SKIN: Warm and dry. HEAD: Normocephalic. EYES: No scleral icterus. No injection or drainage. NECK: Supple, trachea midline. No JVD or lymphadenopathy. CARDIOVASCULAR: Increased Regular rate and rhythm without murmurs, gallops, or rubs. RESPIRATORY: Breath sounds equal bilaterally diminished with expiratory wheezes. No accessory muscle use. GASTROINTESTINAL: Abdomen soft, non-tender, nondistended. MUSCULOSKELETAL: No cyanosis, or edema. BACK: Nontender without obvious deformity. No CVA tenderness. Data Data Last Documented VS Vital Signs Date Time Temp Pulse Resp B/P Pulse Ox O2 Delivery O2 Flow Rate FiO2 09/05/16 02:13 98 18 150/72 98 Nasal Cannula 2 09/04/16 23:34 98.3 Orders Complete Blood Count With Diff (09/04/16 23:51) Comprehensive Metabolic Panel (09/04/16 23:51) B-Type Natriuretic Peptide (09/04/16 23:51) Act Partial Throm Time (Ptt) (09/04/16 23:51) Prothrombin Time / Inr (Pt) (09/04/16 23:51) Magnesium (Mg) (09/04/16 23:51) Ckmb (Isoenzyme) Profile (09/04/16 23:51) Troponin I (09/04/16 23:51) Urinalysis - C+S If Indicated (09/04/16 23:51) Iv Access Insert/Monitor (09/04/16 23:51) Electrocardiogram (09/04/16 23:51) Ecg Monitoring (09/04/16 23:51) Oximetry (09/04/16 23:51) Oxygen Administration (09/04/16 23:51) Chest, Single Ap (09/04/16 23:51) Sodium Chloride 0.9% Flush (Ns Flush) (09/05/16 00:00) Albuterol-Ipratropium Neb (Duoneb Neb) (09/05/16 00:00) Lidocaine Pf 2% Neb (Lidocaine Pf 2% Neb (09/05/16 00:15) Blood Culture (09/05/16 01:27) Ceftriaxone Inj (Rocephin Inj) (09/05/16 01:30) Urine Culture (09/05/16 01:12) Admit Order (Ed Use Only) (09/05/16 ) ^ Saline Lock (09/05/16 02:24) Resp Oxygen Lane C Titrat 1-4 L (09/05/16 ) Notify Dr: Other (09/05/16 02:24) Sodium Chloride 0.9% Flush (Ns Flush) (09/05/16 09:00) Sodium Chloride 0.9% Flush (Ns Flush) (09/05/16 02:30) Labs Laboratory Tests Test 09/05/16 09/05/16 00:01 01:12 White Blood Count 18.3 TH/MM3 Red Blood Count 4.53 MIL/MM3 Hemoglobin 11.5 GM/DL Hematocrit 36.1 % Mean Corpuscular Volume 79.6 FL Mean Corpuscular Hemoglobin 25.4 PG Mean Corpuscular Hemoglobin 31.9 % Concent Red Cell Distribution Width 14.0 % Platelet Count 241 TH/MM3 Mean Platelet Volume 9.3 FL Neutrophils (%) (Auto) 71.7 % Lymphocytes (%) (Auto) 17.5 % Monocytes (%) (Auto) 9.9 % Eosinophils (%) (Auto) 0.0 % Basophils (%) (Auto) 0.9 % Neutrophils # (Auto) 13.1 TH/MM3 Lymphocytes # (Auto) 3.2 TH/MM3 Monocytes # (Auto) 1.8 TH/MM3 Eosinophils # (Auto) 0.0 TH/MM3 Basophils # (Auto) 0.2 TH/MM3 CBC Comment AUTO DIFF Differential Total Cells 100 Counted Neutrophils % (Manual) 72 % Band Neutrophils % 3 % Lymphocytes % 13 % Monocytes % 10 % Neutrophils # (Manual) 14.1 TH/MM3 Metamyelocytes 1 % Myelocytes 1 % Differential Comment FINAL DIFF MANUAL Toxic Vacuolation PRESENT Platelet Estimate NORMAL Platelet Morphology Comment NORMAL Prothrombin Time 10.6 SEC Prothromb Time International 1.0 RATIO Ratio Activated Partial 21.3 SEC Thromboplast Time Sodium Level 140 MEQ/L Potassium Level 3.9 MEQ/L Chloride Level 104 MEQ/L Carbon Dioxide Level 30.6 MEQ/L Anion Gap 5 MEQ/L Blood Urea Nitrogen 13 MG/DL Creatinine 1.04 MG/DL Estimat Glomerular Filtration 67 ML/MIN Rate Random Glucose 157 MG/DL Calcium Level 9.1 MG/DL Magnesium Level 2.1 MG/DL Total Bilirubin 0.3 MG/DL Aspartate Amino Transf 21 U/L (AST/SGOT) Alanine Aminotransferase 22 U/L (ALT/SGPT) Alkaline Phosphatase 62 U/L Total Creatine Kinase 97 U/L Troponin I 0.02 NG/ML B-Type Natriuretic Peptide 47 PG/ML Total Protein 8.5 GM/DL Albumin 3.7 GM/DL Urine Color YELLOW Urine Turbidity CLEAR Urine pH 5.5 Urine Specific [place] 1.021 Urine Protein 30 mg/dL Urine Glucose (UA) NEG mg/dL Urine Ketones NEG mg/dL Urine Occult Blood TRACE Urine Nitrite NEG Urine Bilirubin NEG Urine Urobilinogen LESS THAN 2.0 MG/DL Urine Leukocyte Esterase LARGE Urine RBC 2 /hpf Urine WBC 20 /hpf Urine Squamous Epithelial <1 /hpf Cells Urine Amorphous Sediment RARE Urine Mucus FEW /lpf Microscopic Urinalysis Comment CULTURE INDICATED MDM Medical Decision Making Medical Screen Exam Complete: Yes Emergency Medical Condition: Yes Medical Record Reviewed: Yes Interpretation(s) EKG: Sinus tachycardia rate [address] elevation or injury pattern change or ectopy noted Last Impressions Chest X-Ray 09/04/16 1337 Signed Impressions: Service Date/Time: Sunday, September 04, 2016 23:51 - CONCLUSION: Normal examination. David Kline MD CBC & BMP Diagram 09/05/16 00:01 Vital Signs Date Time Temp Pulse Resp B/P Pulse Ox O2 Delivery O2 Flow Rate FiO2 09/05/16 02:13 98 18 150/72 98 Nasal Cannula 2 09/05/16 02:12 96 Nasal Cannula 2 09/05/16 01:00 103 18 166/84 97 Nasal Cannula 2 09/04/16 23:34 98.3 133 171/100 93 Differential Diagnosis Dyspnea, pneumonia, bronchitis, COPD, CHF, arrhythmia, electronic disturbance, ACS Narrative Course Patient placed on ekg monitor IV access obtained specimen collected and sent for resulting patient's had no recent fever has been on five-day course of azithromycin complains of wheezing and shortness of breath denies chest pain or referred neck jaw back shoulder arm pain. Increased congestion phlegm with some intermittent yellow discoloration no hemoptysis no pleuritic pain. No new lower extremity pain or swelling. Specimen collected and sent for resulting patient administered DuoNeb updraft Patient given nebulized lidocaine Patient showed evidence of clinically of improved however continues complaining of cough congestion and shortness of breath Patient will be admitted for ongoing respiratory management and given additional antibiotic after blood cultures one-time dose of Rocephin 1 g IV piggyback Patient's case discussed with on-call [facility] MD Dr. Edmond will admit to his service Sepsis Criteria SIRS Criteria (2 or more): Heart rate over 90, WBC > 22250, < 4000 or > 10% bands Physician Communication Physician Communication discussed with Dr Hernadez Diagnosis Primary Impression: Bronchitis Additional Impressions: H/O diabetes mellitus H/O: HTN (hypertension) Admitting Information Admitting Physician Requests: Admit Mary Rachel MD Sep 04, 2016 23:59
[2016-09-05] MEDS ORDERED: RESP: LIDOCAINE HCL 2% 2 ML NEB NEB ONE (00:15)
--- NOTE | 2016-09-05 00:27 | RADRPT ---
EXAM DATE/TIME: 09/04/2016 23:51 [facility] COMPARISON: CHEST SINGLE AP, May 15, 2016, 17:55. INDICATIONS : Shortness of breath and cough MEDICAL HISTORY : Diabetes mellitus type II. Hypertension Gastroesophageal reflux disease. SURGICAL HISTORY : Cholecystectomy. Tonsillectomy. Tubal ligation. ENCOUNTER: Initial ACUITY: 3 days PAIN SCORE: 7/10 LOCATION: Bilateral chest FINDINGS: A single view of the chest demonstrates the lungs to be symmetrically aerated without evidence of mas s, infiltrate or effusion. The cardiomediastinal contours are unremarkable. Osseous structures are intact. CONCLUSION: Normal examination. David Kline MD on September 05, 2016 at 0:25 Board Certified Radiologist. This report was verified electronically.
[2016-09-05 00:38] LABS: AUTOMATED NEUTROPHIL # 13.1 TH/MM3 (1.8-7.7); BASOPHIL # 0.2 TH/MM3 (0-0.2); BASOPHIL % 0.9 % (0.0-2.0); HEMATOCRIT 36.1 % (35.0-46.0); LYMPH % 17.5 % (9.0-44.0); LYMPHOCYTE # 3.2 TH/MM3 (1.0-4.8); MEAN CELL VOLUME 79.6 FL (80.0-100.0); MEAN CORPUSCULAR HEMOGLOBIN 25.4 PG (27.0-34.0); MEAN CORPUSCULAR HGB CONC 31.9 % (32.0-36.0); MONO % 9.9 % (0.0-8.0); NEUT % 71.7 % (16.0-70.0); PLATELET COUNT 241 TH/MM3 (150-450); RED BLOOD COUNT 4.53 MIL/MM3 (4.00-5.30); WHITE BLOOD COUNT 18.3 TH/MM3 (4.0-11.0)
[2016-09-05 00:48] LABS: HEMO FLAGS AUTO DIFF
[2016-09-05 00:49] LABS: APTT (PATIENT) 21.3 SEC (24.3-30.1); PROTHROMBIN TIME - PATIENT 10.6 SEC (9.8-11.6)
[2016-09-05 01:13] LABS: ALKALINE PHOSPHATASE 62 U/L (45-117); ALT (GPT) 22 U/L (10-53); ANION GAP 5 MEQ/L (5-15); AST (GOT) 21 U/L (15-37); BICARBONATE 30.6 MEQ/L (21.0-32.0); BLOOD UREA NITROGEN 13 MG/DL (7-18); CHLORIDE 104 MEQ/L (98-107); GLOMERULAR FILTRATION RATE 67 ML/MIN (>89); MAGNESIUM 2.1 MG/DL (1.5-2.5); POTASSIUM 3.9 MEQ/L (3.5-5.1); SODIUM (NA) 140 MEQ/L (136-145); TOTAL BILIRUBIN ADULT 0.3 MG/DL (0.2-1.0)
[2016-09-05 01:14] LABS: CREATINE KINASE 97 U/L (26-192)
[2016-09-05] MEDS ORDERED: cefTRIAXone INJ 1,000 MG in SODIUM CHLORIDE 0.9% INJ 100 ML IV ONE (01:30)
[2016-09-05 01:40] LABS: BLOOD, URINE TRACE (NEG); GLUCOSE,URINE NEG (NEG); KETONE, URINE NEG (NEG); MUCUS URINE FEW /lpf (OCC); NITRITE,URINE NEG (NEG); PH, URINE 5.5 (5.0-8.5); SQUAMOUS EPITHELIAL CELL URINE <1 /hpf (0-5); URINE COLOR YELLOW (YELLW/STRAW)
[2016-09-05 01:43] LABS: COMMENT (UR) CULTURE INDICATED; CULTURE IF INDICATED CULTURE INDICATED
[2016-09-05 01:55] LABS: BANDS 3 % (0-6); METAMYELOCYTES 1 % (0-1); MYELOCYTES 1 % (0-0); NEUTROPHIL # MANUAL DIFF 14.1 TH/MM3 (1.8-7.7); PLATELET ESTIMATE SMEAR NORMAL (NORMAL); POLYS (SEG NEUTROPHILS) 72 % (16-70); TOXIC VACUOLATION PRESENT (NONE SEEN); WBC DIFF SAMPLE 100
[2016-09-05 01:56] LABS: PLATELET MORPHOLOGY NORMAL (NORMAL); SCAN/DIFF FINAL DIFF MANUAL
[2016-09-05] MEDS ORDERED: SODIUM CHLORIDE 0.9% FLUSH 10 ML FLUSH IVF PRN ×2 (02:30)
[2016-09-05] MEDS ORDERED: RESP: ALBUTEROL 2.5 MG/IPRATROPIUM 0.5 MG NEB (SCH) NEB ONE (03:30)
[2016-09-05] MEDS ORDERED: SODIUM CHLORIDE 0.9% FLUSH 10 ML FLUSH IV FLUSH PRN (05:15)
[2016-09-05] MEDS ORDERED: GLUCAGON 1 MG/ML VIAL OTHER PRN (05:30)
[2016-09-05] MEDS ORDERED: DEXTROSE 50% IN WATER 50 ML VIAL(D50) IV PRN (05:30)
[2016-09-05] MEDS ORDERED: hydrOXYzine HCL 50 MG TAB PO PRN (05:30)
[2016-09-05] MEDS ORDERED: LEVOFLOXACIN 750 MG PREMIX INJ 150 ML IV SCH (06:00)
[2016-09-05] MEDS ORDERED: methylPREDNISolone SOD SUCC 125 MG/2 ML VIAL IVP SCH (06:00)
[2016-09-05] MEDS: INSULIN ASPART SUPPLEMENTAL SCALE SQ SCH ×4 (06:55→22:26)
--- NOTE | 2016-09-05 07:39 | HHI.HP ---
HPI Service [facility] Hospitalists Primary Care Physician Alberto Lerma MD Admission Diagnosis Acute bronchitis; sirs; h/o dm; h/o htn Diagnoses: Chief Complaint: cough, sob Travel History International Travel<30 Days: No Contact w/Intl Traveler <30 Da: No Traveled to Known Affected Are: No Sepsis Criteria SIRS Criteria (2 or more): Heart rate over 90, WBC > 45522, < 4000 or > 10% bands Sepsis Criteria (SIRS+source): Infect source susp/known Criteria Outcome: Meets sepsis criteria History of Present Illness This is a 55-year-old female with past medical history as stated below who presents to [facility] complaining of upper retrograde infection symptoms including cough, productive sputum, shortness of breath associated with some wheezing, fevers and chills. The patient states that he went to see her doctor who prescribes her medications that she cannot remember the names of. However she kept getting worst. The patient also complains of some chest pain which is substernal and brought up by coughing. Denies abdominal pain, nausea, vomiting, denies headache, denies dysuria, denies diarrhea. Review of Systems As per history of present illness, other systems reviewed by me and negative Past Family Social History Past Medical History Diabetes mellitus Hypertension Hyperlipidemia Depression Past Surgical History Cholecystectomy Tonsillectomy Tubal ligation Reported Medications Amlodipine (Amlodipine Besylate) 5 Mg Tab 5 Mg PO DAILY Buspirone (Buspirone HCl) 30 Mg Tab 30 Mg PO TID Clonidine ER 12 HR (Clonidine HCl) 0.1 Mg Tab 0.1 Mg PO TID Vistaril (Hydroxyzine Pamoate) 50 Mg Cap 50 Mg PO TID Zestoretic (Lisinopril-Hctz) 20-12.5 Mg Tab 1 Tab PO DAILY Metformin (Metformin HCl) 500 Mg Tab 500 Mg PO BID With meals Propranolol (Propranolol HCl) 20 Mg Tab 20 Mg PO TID Trazodone (Trazodone HCl) 300 Mg Tab 300 Mg PO HS Trihexyphenidyl (Trihexyphenidyl HCl) 5 Mg Tab 5 Mg PO BID Geodon (Ziprasidone) 60 Mg Cap 60 Mg PO BID Gabapentin 300 Mg Cap 300 Mg PO TID Allergies: Coded Allergies: No Known Allergies (Verified , 05/15/16) Active Ordered Medications Current Medications Medications (Trade) Dose Ordered Sig/Myranda Route Start Time Stop Time Status Last Admin (NS Flush) 2 ml BID IV FLUSH 09/05/16 09:00 (NS Flush) 2 ml UNSCH PRN IV FLUSH 09/05/16 05:15 Methylprednisolone Sodium Succinate 40 mg 40 mg Q6HR IVP 09/05/16 06:00 09/05/16 06:14 (Levaquin 750 Mg Premix Inj) 150 ml @ 100 mls/hr Q24H IV 09/05/16 06:00 09/05/16 06:15 (Lovenox Inj) 40 mg Q24H SQ 09/05/16 09:00 (Norvasc) 5 mg DAILY PO 09/05/16 09:00 (Buspar) 30 mg TID PO 09/05/16 09:00 (Neurontin) 300 mg TID PO 09/05/16 09:00 (Inderal) 20 mg TID PO 09/05/16 09:00 (Desyrel) 300 mg HS PO 09/05/16 21:00 (Artane) 5 mg BID PO 09/05/16 09:00 (Geodon) 60 mg BID PO 09/05/16 09:00 (Atarax) 50 mg Q8H PRN PO 09/05/16 05:30 (D50w (Vial) Inj) 50 ml UNSCH PRN IV 09/05/16 05:30 (Glucagon Inj) 1 mg UNSCH PRN OTHER 09/05/16 05:30 (Prinivil) 20 mg DAILY PO 09/05/16 09:00 (Hydrodiuril) 12.5 mg DAILY PO 09/05/16 09:00 Family History Patient's mother had diabetes mellitus Patient's father from breast cancer Patient's brother also with complications from congestive heart failure. Social History She denies smoking ever Denies alcohol intake. Denies illicit drug use The patient is single and has 2 children. Physical Exam Vital Signs Vital Signs Date Time Temp Pulse Resp B/P Pulse Ox O2 Delivery O2 Flow Rate FiO2 09/05/16 06:40 97.4 83 22 189/95 96 09/05/16 05:33 87 19 134/70 99 Nasal Cannula 2 09/05/16 03:30 98 Nasal Cannula 2.00 09/05/16 02:13 98 18 150/72 98 Nasal Cannula 2 09/05/16 02:12 96 Nasal Cannula 2 09/05/16 01:00 103 18 166/84 97 Nasal Cannula 2 09/04/16 23:34 98.3 133 171/100 93 Physical Exam GENERAL: This is a well-nourished, well-developed patient, in no apparent distress. SKIN: No rashes, ecchymoses or lesions. Cool and dry. HEAD: Atraumatic. Normocephalic. No temporal or scalp tenderness. EYES: Pupils equal round and reactive. Extraocular motions intact. No scleral icterus. No injection or drainage. ENT: Nose without bleeding, purulent drainage or septal hematoma. Throat without erythema, tonsillar hypertrophy or exudate. Uvula midline. Airway patent. NECK: Trachea midline. No JVD or lymphadenopathy. Supple, nontender, no meningeal signs. CARDIOVASCULAR: Regular rate and rhythm without murmurs, gallops, or rubs. RESPIRATORY: Bilateral diffuse expiratory wheezing. No rales or rhonchi auscultated. GASTROINTESTINAL: Abdomen soft, non-tender, nondistended. No hepato-splenomegaly , or palpable masses. No guarding. MUSCULOSKELETAL: Extremities without clubbing, cyanosis, or edema. No joint tenderness, effusion, or edema noted. No calf tenderness. Negative Homans sign bilaterally. Moves bilateral lower extremities.. NEUROLOGICAL: Awake and alert but very anxious. Cranial nerves II through XII intact. Motor and sensory grossly within normal limits. Five out of 5 muscle strength in all muscle groups. Normal speech. Laboratory Laboratory Tests Test 09/05/16 09/05/16 00:01 01:12 White Blood Count 18.3 Red Blood Count 4.53 Hemoglobin 11.5 Hematocrit 36.1 Mean Corpuscular Volume 79.6 Mean Corpuscular Hemoglobin 25.4 Mean Corpuscular Hemoglobin 31.9 Concent Red Cell Distribution Width 14.0 Platelet Count 241 Mean Platelet Volume 9.3 Neutrophils (%) (Auto) 71.7 Lymphocytes (%) (Auto) 17.5 Monocytes (%) (Auto) 9.9 Eosinophils (%) (Auto) 0.0 Basophils (%) (Auto) 0.9 Neutrophils # (Auto) 13.1 Lymphocytes # (Auto) 3.2 Monocytes # (Auto) 1.8 Eosinophils # (Auto) 0.0 Basophils # (Auto) 0.2 CBC Comment AUTO DIFF Differential Total Cells 100 Counted Neutrophils % (Manual) 72 Band Neutrophils % 3 Lymphocytes % 13 Monocytes % 10 Neutrophils # (Manual) 14.1 Metamyelocytes 1 Myelocytes 1 Differential Comment FINAL DIFF MANUAL Toxic Vacuolation PRESENT Platelet Estimate NORMAL Platelet Morphology Comment NORMAL Prothrombin Time 10.6 Prothromb Time International 1.0 Ratio Activated Partial 21.3 Thromboplast Time Sodium Level 140 Potassium Level 3.9 Chloride Level 104 Carbon Dioxide Level 30.6 Anion Gap 5 Blood Urea Nitrogen 13 Creatinine 1.04 Estimat Glomerular Filtration 67 Rate Random Glucose 157 Calcium Level 9.1 Magnesium Level 2.1 Total Bilirubin 0.3 Aspartate Amino Transf 21 (AST/SGOT) Alanine Aminotransferase 22 (ALT/SGPT) Alkaline Phosphatase 62 Total Creatine Kinase 97 Troponin I 0.02 B-Type Natriuretic Peptide 47 Total Protein 8.5 Albumin 3.7 Urine Color YELLOW Urine Turbidity CLEAR Urine pH 5.5 Urine Specific [place] 1.021 Urine Protein 30 Urine Glucose (UA) NEG Urine Ketones NEG Urine Occult Blood TRACE Urine Nitrite NEG Urine Bilirubin NEG Urine Urobilinogen LESS THAN 2.0 Urine Leukocyte Esterase LARGE Urine RBC 2 Urine WBC 20 Urine Squamous Epithelial <1 Cells Urine Amorphous Sediment RARE Urine Mucus FEW Microscopic Urinalysis Comment CULTURE INDICATED Date/Time Procedure Status Source Growth 09/05/16 02:05 Aerobic Blood Culture Received Blood Peripheral Pending 09/05/16 02:05 Anaerobic Blood Culture Received Blood Peripheral Pending 09/05/16 01:12 Urine Culture Received Urine Clean Catch Pending Result Diagram: 09/05/16 0001 09/05/16 0001 Imaging Last Impressions Chest X-Ray 09/04/16 9311 Signed Impressions: Service Date/Time: Sunday, September 04, 2016 23:51 - CONCLUSION: Normal examination. David Kilne MD Reviewed by me Septic Shock Reassessment Heart: Regular rate and rhythm Lungs: Other (bilateral expiratory wheezing) Skin: Warm Peripheral Pulses: Bounding Right Radial Bounding Left Radial Capillary Refill: <2 seconds Assessment and Plan Problem List: (1) Sepsis ICD Code: A41.9 Status: Acute Plan: Sepsis present on admission. Vision with tachycardia and leukocytosis. Sepsis likely secondary to UTI and acute bronchitis. Admit the patient to the medical for Continue IV fluids Continue IV Rocephin and add IV azithromycin. (2) UTI (urinary tract infection) ICD Code: N39.0 Status: Acute Plan: IV Rocephin (3) Acute bronchitis ICD Code: J20.9 Status: Acute Plan: Was likely Viral etiology. Will check for H. influenzae mycoplasma pneumonia. Will place on IV Rocephin and azithromycin and IV steroids in the form of Solu- Medrol. (4) SHARRI (acute kidney injury) ICD Code: N17.9 Status: Acute Plan: Likely secondary to prerenal azotemia from dehydration. Continue IV fluids and continue to monitor BUN/creatinine, strict I's and O's and avoid nephrotoxins. (5) Uncontrolled hypertension ICD Code: I10 Status: Acute Plan: Continue home antihypertensive medications which include amlodipine, clonidine, lisinoprilHCTZ. I will also add clonidine as needed for systolic blood pressure more than 160. (6) Anxiety ICD Code: F41.9 Status: Acute Plan: Patient symptoms very anxious and is moving bilateral extremities uncontrollably. I will continue Vistaril, buspirone, trazodone at bedtime, Geodon. Assessment and Plan GI prophylaxis: Place on PPI DVT plexus: SCDs, chemotherapy prophylaxis with Lovenox subcutaneously Code Status Full code Discussed Condition With ED physician, patient. Physician Certification 2 Midnight Certification Type: Admission for Inpatient Services Order for Inpatient Services The services are ordered in accordance with Medicare regulations or non- Medicare payer requirements, as applicable. In the case of services not specified as inpatient-only, they are appropriately provided as inpatient services in accordance with the 2-midnight benchmark. Estimated LOS (days): 2 days is the estimated time the patient will need to remain in the hospital, assuming treatment plan goals are met and no additional complications. Post-Hospital Plan: Not yet determined Problem Qualifiers (1) Sepsis: Qualified Code: A41.9 - Sepsis, due to unspecified organism (2) UTI (urinary tract infection): Qualified Code: N30.00 - Acute cystitis without hematuria (3) Acute bronchitis: Qualified Code: J20.9 - Acute bronchitis, unspecified organism Ed Guzman MD Sep 05, 2016 07:39
[2016-09-05] MEDS ORDERED: RESP: ALBUTEROL 2.5 MG/IPRATROPIUM 0.5 MG NEB (PRN) NEB (07:45)
[2016-09-05] MEDS: AZITHROMYCIN INJ 500 MG in SODIUM CHLOR 0.9% 250 ML INJ 250 ML IV SCH (08:31)
[2016-09-05] MEDS: GABAPENTIN 300 MG CAP PO SCH ×3 (08:32→16:34)
[2016-09-05] MEDS: LISINOPRIL 20 MG TAB PO SCH (08:32)
[2016-09-05] MEDS: PROPRANOLOL HCL 20 MG TAB PO SCH ×3 (08:32→16:28)
[2016-09-05] MEDS: ENOXAPARIN SODIUM 40 MG/0.4 ML SYRINGE SQ SCH (08:32)
[2016-09-05] MEDS: amLODIPine BESYLATE 5 MG TAB PO SCH (08:32)
[2016-09-05] MEDS: busPIRone HCL 10 MG TAB PO SCH ×3 (08:33→16:29)
[2016-09-05] MEDS: SODIUM CHLORIDE 0.9% FLUSH 10 ML FLUSH IV FLUSH SCH ×2 (08:33→22:29)
[2016-09-05] MEDS: HYDROCHLOROTHIAZIDE 25 MG TAB PO SCH (08:33)
[2016-09-05] MEDS ORDERED: SODIUM CHLORIDE 0.9% FLUSH 10 ML FLUSH IV FLUSH SCH (09:00)
[2016-09-05] MEDS ORDERED: CLONIDINE 0.1 MG PO SCH (09:00)
[2016-09-05] MEDS ORDERED: NON-FORMULARY DRUG (Lisinopril-Hctz (Zestoretic) 1 TAB) PO SCH (09:00)
[2016-09-05] MEDS ORDERED: RESP: ALBUTEROL 2.5 MG/IPRATROPIUM 0.5 MG NEB (SCH) INH (10:00)
--- NOTE | 2016-09-05 10:05 | EKG ---
Date Performed: 09/04/2016 Time Performed: 23:54:45 PTAGE: 55 years EKG: SINUS TACHYCARDIA NONSPECIFIC T-WAVE ABNORMALITY ABNORMAL RHYTHM ECG NO PREVIOUS TRACING DOCTOR: Quentin Lim Interpretating Date/Time 09/05/2016 10:03:55
--- NOTE | 2016-09-05 11:32 | MB ---
cc: ELADIO LIZARRAGA M.D. DATE OF CONSULTATION: 09/05/2016 REASON FOR CONSULTATION: Pulmonary consultation. DATE OF : 1960. HISTORY: The patient is a 55-year-old female with past medical history of hypertension, diabetes mellitus, hyperlipidemia, depression, obesity, who presented to [facility] emergency department early this morning with 3-week history of cough productive at times with a yellow phlegm, associated with shortness of breath and intermittent wheezing. The patient also states that her chest hurts with breathing. She denies any constitutional symptoms. However, she reported slight fever a few days ago. She denies any exposure to sick contacts. In addition she denies any prior history of pneumonia. She was told several years ago that she was allergic to dust mites but denies any other environmental allergies. She went to see her primary care doctor who prescribed medication which she does not remember the name of and her condition has been getting worse. She denies any abdominal pain, nausea, vomiting, the patient is a nonsmoker. On the arrival to the emergency room she was tachycardic and chest x-ray was within normal limits. In the emergency room she was given a bronchodilator treatment Rocephin and Levaquin. LABORATORY DATA: Her laboratory data significant for leukocytosis with a WBC of 18.3. BNP reported as 47 and troponin of 0.02. On further history she is on lisinopril for hypertension and has been on it for approximately three years. PAST MEDICAL HISTORY: 1. Past medical history significant for diabetes, hypertension, hyperlipidemia, depression, obesity. PAST SURGICAL HISTORY 1. Previous cholecystectomy. 2. Previous tonsillectomy. 3. Previous tubal ligation. MEDICATIONS medications include 1. Amlodipine. 2. Clonidine. 3. Vistaril. 4. Metformin. 5. Propranolol. 6. Trazodone. 7. Geodon 8. Gabapentin. ALLERGIES: NO KNOWN DRUG ALLERGIES. FAMILY HISTORY Diabetes mellitus, breast cancer runs in the family. SOCIAL HISTORY Nonsmoker, nondrinker. Denies any illicit drug use. REVIEW OF SYSTEMS As per HPI. Rest of the system unremarkable. PHYSICAL EXAMINATION: Physical exam 55-year-old female lying in bed in mild distress. VITAL SIGNS: Temperature 97.1, pulse of 90, respiratory rate of 19, blood pressure 138/90, saturation 98% on 2 liters oxygen. HEAD, EYES, EARS, NOSE, AND THROAT: Atraumatic, normocephalic pupil equal and reactive to accommodation, extraocular muscles intact, Conjunctivae pink. Nonicteric sclerae. Oral mucosa within normal. NECK: Supple. No JVD, adenopathy or thyromegaly. Trachea midline. CARDIOVASCULAR SYSTEM: Regular rate and rhythm normal S1, S2, No murmurs, rubs or gallops noted. PULMONARY: Pulmonary exam bilateral equal entry with a few scattered wheezing. No rhonchi noted. ABDOMEN: The abdomen is soft, obese, nontender, no distention, positive bowel sounds. EXTREMITIES: No clubbing, cyanosis or edema. NEUROLOGIC: No focal sensory deficit. LABORATORY DATA Sodium 140, 3.9, chloride 104, CO2 30, BUN 13, creatinine 1.04, glucose 157, BNP 47, WBC 18.3, hemoglobin 11.5, hematocrit 36, platelet count of 241, INR one, PT 10.6, PTT 21.3. Urinalysis positive for leukocyte esterase 20, WBC. RADIOGRAPHY Chest x-ray Within normal. IMPRESSION 1. Respiratory insufficiency. 2. Tracheobronchitis. 3. Subacute cough and differential diagnosis secondary to tracheobronchitis, KYLER inhibitor for the infectious process. 4. Leukocytosis 5. Urinary tract infection. 6. Mild acute kidney injury. 7. Diabetes mellitus. 8. Hypertension 9. Hyperlipidemia. 10. Obesity. 11. History of depression. RECOMMENDATIONS 1. Continue with oxygen and maintain sats above 92%. 2. Bronchodilators in the form of DuoNeb q. 4, plus q. two p.r.n. for shortness of breath. 3. I agree with IV steroids. We will increase Solu-Medrol to 60 mg IV q. six. 4. Noninvasive positive pressure ventilation p.r.n. for respiratory distress. 5. We will proceed with CT angiogram of the chest to rule out a pulmonary embolism and for further evaluation of pulmonary parenchyma. 6. Continue with antibiotics in the form of Rocephin, azithromycin and monitor for signs of infections which include fever and WBC. Check sputum culture with gram stain. 7. Follow up on blood cultures . 8. Consider stopping KYLER inhibitor which could be causing her cough. 9. Will need a pulmonary function test as an outpatient to rule out obstructive and restrictive lung disease in addition to sleep study to rule out obstructive sleep apnea. 10. Monitor renal function and electrolyte replacement as needed. Continue with IV fluids. 11. Continue with antihypertensive medications. 12. GI and DVT prophylaxis per primary team. on Lovenox 40 mg Subcu daily. 13. Further recommendations will be based on hospital course. MD SHEILA Arciniega/elana /10:42 AM /11:06 AM MTDD
[2016-09-05] MEDS: methylPREDNISolone SOD SUCC 125 MG/2 ML VIAL IVP SCH ×3 (12:00→22:21)
[2016-09-05] MEDS: TRIHEXYPHENIDYL HCL 5 MG TAB PO SCH ×2 (12:30→22:20)
[2016-09-05] MEDS: ZIPRASIDONE HCL 60 MG CAP PO SCH ×2 (12:30→22:20)
[2016-09-05] MEDS: guaiFENesin E.R. 600 MG TAB PO SCH ×2 (14:15→22:20)
[2016-09-05] MEDS ORDERED: POTASSIUM CHLORIDE 20 MEQ CONTROLLED RELEASE TAB PO ONE (14:15)
[2016-09-05] MEDS: RESP: ALBUTEROL 2.5 MG/IPRATROPIUM 0.5 MG NEB (SCH) INH ×4 (15:45→23:59)
[2016-09-05] MEDS: cefTRIAXone INJ 2,000 MG in SODIUM CHLORIDE 0.9% INJ 100 ML IV SCH (16:27)
[2016-09-05] MEDS: SODIUM CHLOR 0.9% 1000 ML INJ 1,000 ML IV SCH ×2 (16:34→22:30)
[2016-09-05] MEDS ORDERED: IOHEXOL 350 MG/ML 10 ML VIAL (for RAD DIAG) IV ONE (19:07)
--- NOTE | 2016-09-05 19:22 | RADRPT ---
EXAM DATE/TIME: 09/05/2016 19:00 [place] COMPARISON: No previous studies available for comparison. INDICATIONS : Left sided chest pain and shortness of breath today. IV CONTRAST: 74 cc Omnipaque 350 (iohexol) IV RADIATION DOSE: 25.48 CTDIvol (mGy) MEDICAL HISTORY : Hypertension. Cardiovascular disease SURGICAL HISTORY : Cholecystectomy. ENCOUNTER: Initial ACUITY: 1 day PAIN SCALE: 6/10 LOCATION: Left chest TECHNIQUE: Volumetric scanning of the chest was performed using a pulmonary embolism protocol MIP images were re constructed. Using automated exposure control and adjustment of the mA and/or kV according to patien t size, radiation dose was kept as low as reasonably achievable to obtain optimal diagnostic quality images. DICOM format image data is available electronically for review and comparison. FINDINGS: PULMONARY ARTERIES: No filling defects are seen in the pulmonary arteries through the segmental level. LUNGS: There is linear atelectasis or consolidation at the medial right lung base and the inferior left ling joon. PLEURAE: There is no pleural thickening or pleural effusion. MEDIASTINUM: There is good visualization of the great vessels of the middle mediastinum. No evidence of mediastin al or hilar adenopathy/mass. Small calcifications are seen in the hilar regions. MUSCULOSKELETAL: Within normal limits for patient age. MISCELLANEOUS: The visualized upper abdominal organs demonstrate no acute abnormality. CONCLUSION: 1. No pulmonary embolus. 2. Atelectasis or consolidation at the medial right lung base and the left lingula. Sourav Penny MD on September 05, 2016 at 19:18 Board Certified Radiologist. This report was verified electronically.
[2016-09-05] MEDS: traZODone HCL 100 MG TAB PO SCH (22:20)
[2016-09-06] VITALS (10 sets, daily range): BP systolic 113–153; BP diastolic 63–86; PULSE 62–82; RESP 16–19; TEMP 96.5–97.7; O2SAT 94–99
[2016-09-06] MEDS: RESP: ALBUTEROL 2.5 MG/IPRATROPIUM 0.5 MG NEB (SCH) INH ×2 (03:46→09:24)
[2016-09-06] MEDS: methylPREDNISolone SOD SUCC 125 MG/2 ML VIAL IVP SCH ×3 (05:56→16:49)
[2016-09-06] MEDS: INSULIN ASPART SUPPLEMENTAL SCALE SQ SCH ×4 (06:00→20:20)
[2016-09-06] MEDS: SODIUM CHLOR 0.9% 1000 ML INJ 1,000 ML IV SCH ×2 (06:02→17:00)
[2016-09-06] MEDS: RESP: ALBUTEROL 2.5 MG/3 ML NEB (PRN) INH (06:21)
[2016-09-06 06:45] LABS: BASOPHIL % 0.1 % (0.0-2.0); HEMATOCRIT 35.9 % (35.0-46.0); HEMO FLAGS DIFF FINAL; LYMPH % 11.4 % (9.0-44.0); LYMPHOCYTE # 1.8 TH/MM3 (1.0-4.8); MEAN CELL VOLUME 80.9 FL (80.0-100.0); MEAN CORPUSCULAR HEMOGLOBIN 24.7 PG (27.0-34.0); MEAN CORPUSCULAR HGB CONC 30.6 % (32.0-36.0); MONO % 4.7 % (0.0-8.0); NEUT % 83.8 % (16.0-70.0); PLATELET COUNT 221 TH/MM3 (150-450); RED BLOOD COUNT 4.44 MIL/MM3 (4.00-5.30); RED CELL DISTRIBUTION WIDTH 14.4 % (11.6-17.2); WHITE BLOOD COUNT 15.5 TH/MM3 (4.0-11.0)
[2016-09-06 07:13] LABS: BICARBONATE 29.4 MEQ/L (21.0-32.0); POTASSIUM 3.7 MEQ/L (3.5-5.1)
--- NOTE | 2016-09-06 07:53 | HHI.PR ---
Subjective Remarks Patient c/o substernal CP 10/15. She states this is the same pain she presented with, however it is worse now. Is reproducible with palpation and deep inspiration. States she is still wheezing but her SOB is better. Objective Vitals Vital Signs Date Time Temp Pulse Resp B/P Pulse Ox O2 Delivery O2 Flow Rate FiO2 09/06/16 06:21 96 Nasal Cannula 2.00 09/06/16 04:00 97.7 62 18 153/86 99 09/06/16 03:47 96 Nasal Cannula 2.00 09/06/16 00:00 95 Nasal Cannula 2.00 09/06/16 00:00 96.5 64 19 115/66 98 09/05/16 21:08 98 Nasal Cannula 3.00 09/05/16 20:00 96.7 61 18 133/81 99 09/05/16 16:00 97.8 63 18 118/74 99 09/05/16 12:00 98.1 77 19 146/85 98 09/05/16 08:00 97.1 90 19 138/90 98 I/O 09/05/16 09/05/16 09/05/16 09/06/16 09/06/16 09/06/16 07:00 15:00 23:00 07:00 15:00 23:00 Intake Total 960 ml 720 ml 480 ml Balance 960 ml 720 ml 480 ml Intake Oral 960 ml 720 ml 480 ml # Voids 4 2 2 Result Diagram: 09/06/16 0555 09/06/16 0550 Objective Remarks GENERAL: This is a well-nourished, well-developed patient, in no apparent distress. SKIN: No rashes, ecchymoses or lesions. Cool and dry. HEAD: Atraumatic. Normocephalic. No temporal or scalp tenderness. EYES: Pupils equal round and reactive. Extraocular motions intact. No scleral icterus. No injection or drainage. ENT: Nose without bleeding, purulent drainage or septal hematoma. Throat without erythema, tonsillar hypertrophy or exudate. Uvula midline. Airway patent. NECK: Trachea midline. No JVD or lymphadenopathy. Supple, nontender, no meningeal signs. CARDIOVASCULAR: Regular rate and rhythm without murmurs, gallops, or rubs. RESPIRATORY: CTAB. Diminished breath sounds in the RLL. No wheezes, rales or rhonchi, GASTROINTESTINAL: Abdomen soft, non-tender, nondistended. No hepato-splenomegaly , or palpable masses. No guarding. MUSCULOSKELETAL: Extremities without clubbing, cyanosis, or edema. No joint tenderness, effusion, or edema noted. No calf tenderness. Negative Homans sign bilaterally. Moves bilateral lower extremities.. NEUROLOGICAL: Awake and alert but very anxious. Cranial nerves II through XII intact. Motor and sensory grossly within normal limits. Five out of 5 muscle strength in all muscle groups. Normal speech. A/P Problem List: (1) Sepsis ICD Code: A41.9 Status: Acute (2) UTI (urinary tract infection) ICD Code: N39.0 Status: Acute (3) Acute bronchitis ICD Code: J20.9 Status: Acute (4) SHARRI (acute kidney injury) ICD Code: N17.9 Status: Acute (5) Uncontrolled hypertension ICD Code: I10 Status: Acute (6) Anxiety ICD Code: F41.9 Status: Acute Assessment and Plan 1. Sepsis present on admission. Tachycardia and leukocytosis. Sepsis likely secondary to UTI and acute bronchitis. Continue IV fluids Continue IV Rocephin and IV azithromycin. 2. Chest pain Likely 2/2 cough/bronchitis ACS r/o with stat EKG and troponin x 1 3. UTI Rocephin IV 4. Acute bronchitis versus PNA H. influenzae mycoplasma pneumonia pending Sputum cx pending Abx as above Solu-Medrol Pulmonary consulted, recommend continuing abx and steroids. PFTs as outpatient to r/o obstructive lung disease 5. SHARRI. Resolved Likely secondary to prerenal azotemia from dehydration. Continue IV fluids for now. 6. HTN Continue home antihypertensive medications which include amlodipine, clonidine, lisinoprilHCTZ. Clonidine as needed for systolic blood pressure more than 160. 7. Anxiety Continue Vistaril, buspirone, trazodone at bedtime, Geodon. GI prophylaxis: Place on PPI DVT plexus: SCDs, chemotherapy prophylaxis with Lovenox subcutaneously Problem Qualifiers (1) Sepsis: Qualified Code: A41.9 - Sepsis, due to unspecified organism (2) UTI (urinary tract infection): Qualified Code: N30.00 - Acute cystitis without hematuria (3) Acute bronchitis: Qualified Code: J20.9 - Acute bronchitis, unspecified organism Yola Melchor MD R3 Sep 06, 2016 07:53
[2016-09-06 09:21] LABS: CREATINE KINASE 58 U/L (26-192)
--- NOTE | 2016-09-06 10:00 | HHI.PR ---
Subjective Remarks No events overnight. Patient is on 4L oxygen with good sats. CTA chest yesterday showed no PE. Objective Vital Signs Vital Signs Date Time Temp Pulse Resp B/P Pulse Ox O2 Delivery O2 Flow Rate FiO2 09/06/16 09:25 94 Nasal Cannula 2.00 09/06/16 08:00 96.5 64 18 113/63 95 09/06/16 06:21 96 Nasal Cannula 2.00 09/06/16 04:00 97.7 62 18 153/86 99 09/06/16 03:47 96 Nasal Cannula 2.00 09/06/16 00:00 95 Nasal Cannula 2.00 09/06/16 00:00 96.5 64 19 115/66 98 09/05/16 21:08 98 Nasal Cannula 3.00 09/05/16 20:00 96.7 61 18 133/81 99 09/05/16 16:00 97.8 63 18 118/74 99 09/05/16 12:00 98.1 77 19 146/85 98 I/O 09/05/16 09/05/16 09/05/16 09/06/16 09/06/16 09/06/16 07:00 15:00 23:00 07:00 15:00 23:00 Intake Total 960 ml 720 ml 480 ml 240 ml Balance 960 ml 720 ml 480 ml 240 ml Intake Oral 960 ml 720 ml 480 ml 240 ml # Voids 4 2 2 Result Diagram: 09/06/16 0555 09/06/16 0550 Other Results Last Impressions CT Angiography 09/05/16 0000 Signed Impressions: Service Date/Time: Monday, September 05, 2016 19:00 - CONCLUSION: 1. No pulmonary embolus. 2. Atelectasis or consolidation at the medial right lung base and the left lingula. Sourav Penny MD Chest X-Ray 09/04/16 0136 Signed Impressions: Service Date/Time: Sunday, September 04, 2016 23:51 - CONCLUSION: Normal examination. David Kline MD Objective Remarks GENERAL: Patient is 55 yo lying in bed in NAD SKIN: Warm and dry. HEAD: Normocephalic. EYES: No scleral icterus. No injection or drainage. NECK: Supple, trachea midline. No JVD or lymphadenopathy. CARDIOVASCULAR: Regular rate and rhythm without murmurs, gallops, or rubs. RESPIRATORY: Breath sounds equal bilaterally. No accessory muscle use. GASTROINTESTINAL: Abdomen soft, non-tender, nondistended. MUSCULOSKELETAL: No cyanosis, or edema. Neuro: Awake and alert. A/P Assessment and Plan 1. Respiratory insufficiency. 2. Tracheobronchitis. 3. Subacute cough-ddx: 2nd to tracheobronchitis, KYLER inhibitor, or other infectious process. 4. Leukocytosis 5. Urinary tract infection. 6. Mild acute kidney injury. 7. Diabetes mellitus. 8. Hypertension 9. Hyperlipidemia. 10. Obesity. 11. History of depression. RECOMMENDATIONS Continue with oxygen and maintain sats above 92%. Bronchodilators, Solu-Medrol to 60 mg IV q.6 BIPAP p.r.n. for respiratory distress. CTA chest showed no PE Continue with abx(Rocephin, azithromycin) monitor for signs of infections(fever and WBC). Follow up on cultures PFT as an outpatient to rule out obstructive and restrictive lung disease in addition to sleep study to rule out CARMEN Monitor renal function and electrolyte replacement as needed. On NS@84ml/hr Continue with antihypertensive medications. GI and DVT prophylaxis per primary team. on Lovenox 40 mg Subcu daily. Mary Kay Parker MD Sep 06, 2016 10:00
[2016-09-06] MEDS: ENOXAPARIN SODIUM 40 MG/0.4 ML SYRINGE SQ SCH (10:04)
[2016-09-06] MEDS: HYDROCHLOROTHIAZIDE 25 MG TAB PO SCH (10:04)
[2016-09-06] MEDS: guaiFENesin E.R. 600 MG TAB PO SCH ×2 (10:05→19:57)
[2016-09-06] MEDS: LISINOPRIL 20 MG TAB PO SCH (10:05)
[2016-09-06] MEDS: busPIRone HCL 10 MG TAB PO SCH ×3 (10:05→16:50)
[2016-09-06] MEDS: amLODIPine BESYLATE 5 MG TAB PO SCH (10:05)
[2016-09-06] MEDS: GABAPENTIN 300 MG CAP PO SCH ×3 (10:05→16:50)
[2016-09-06] MEDS: AZITHROMYCIN INJ 500 MG in SODIUM CHLOR 0.9% 250 ML INJ 250 ML IV SCH (10:06)
[2016-09-06] MEDS: SODIUM CHLORIDE 0.9% FLUSH 10 ML FLUSH IV FLUSH SCH ×2 (10:06→19:58)
[2016-09-06] MEDS: TRIHEXYPHENIDYL HCL 5 MG TAB PO SCH ×2 (10:09→19:58)
[2016-09-06] MEDS: PROPRANOLOL HCL 20 MG TAB PO SCH ×3 (10:09→16:49)
[2016-09-06] MEDS: ZIPRASIDONE HCL 60 MG CAP PO SCH ×2 (10:09→19:58)
[2016-09-06] MEDS: cefTRIAXone INJ 2,000 MG in SODIUM CHLORIDE 0.9% INJ 100 ML IV SCH (11:29)
--- NOTE | 2016-09-06 13:36 | EKG ---
Date Performed: 09/06/2016 Time Performed: 08:17:57 PTAGE: 55 years EKG: Sinus rhythm MODERATE T-WAVE ABNORMALITY, CONSIDER ANTEROLATERAL ISCHEMIA Compared to previous tracing, the sinus tachycardia has resolved. The anterolateral T wave changes are new. Myocardial ischemia should be ex cluded clinically. ABNORMAL ECG PREVIOUS TRACING : 09/04/2016 23.54 DOCTOR: Claudine Tolentino Interpretating Date/Time 09/06/2016 13:35:13
[2016-09-06] MEDS: traZODone HCL 100 MG TAB PO SCH (19:58)
[2016-09-06] MEDS: RESP: ALBUTEROL 2.5 MG/IPRATROPIUM 0.5 MG NEB (SCH) NEB (20:54)
[2016-09-07] VITALS (13 sets, daily range): BP systolic 131–182; BP diastolic 70–97; PULSE 62–82; RESP 18–22; TEMP 97.2–97.9; O2SAT 92–97
[2016-09-07] MEDS: methylPREDNISolone SOD SUCC 125 MG/2 ML VIAL IVP SCH ×3 (00:48→20:16)
[2016-09-07] MEDS: cloNIDine HCL 0.1 MG TAB PO PRN (03:48)
[2016-09-07 05:48] LABS: AUTOMATED NEUTROPHIL # 14.3 TH/MM3 (1.8-7.7); BASOPHIL % 0.1 % (0.0-2.0); HEMATOCRIT 34.8 % (35.0-46.0); HEMO FLAGS DIFF FINAL; LYMPH % 6.6 % (9.0-44.0); LYMPHOCYTE # 1.1 TH/MM3 (1.0-4.8); MEAN CELL VOLUME 80.4 FL (80.0-100.0); MEAN CORPUSCULAR HEMOGLOBIN 24.9 PG (27.0-34.0); MEAN CORPUSCULAR HGB CONC 30.9 % (32.0-36.0); MONO % 5.5 % (0.0-8.0); NEUT % 87.8 % (16.0-70.0); PLATELET COUNT 203 TH/MM3 (150-450); RED BLOOD COUNT 4.32 MIL/MM3 (4.00-5.30); RED CELL DISTRIBUTION WIDTH 14.4 % (11.6-17.2); WHITE BLOOD COUNT 16.3 TH/MM3 (4.0-11.0)
[2016-09-07] MEDS: SODIUM CHLOR 0.9% 1000 ML INJ 1,000 ML IV SCH ×2 (06:03→20:30)
[2016-09-07] MEDS: INSULIN ASPART SUPPLEMENTAL SCALE SQ SCH ×4 (06:08→20:20)
[2016-09-07 07:21] LABS: BICARBONATE 30.5 MEQ/L (21.0-32.0); POTASSIUM 3.8 MEQ/L (3.5-5.1)
[2016-09-07] MEDS: ENOXAPARIN SODIUM 40 MG/0.4 ML SYRINGE SQ SCH (07:46)
[2016-09-07] MEDS: AZITHROMYCIN INJ 500 MG in SODIUM CHLOR 0.9% 250 ML INJ 250 ML IV SCH (07:46)
[2016-09-07] MEDS: SODIUM CHLORIDE 0.9% FLUSH 10 ML FLUSH IV FLUSH SCH ×2 (09:00→20:24)
[2016-09-07] MEDS: RESP: ALBUTEROL 2.5 MG/IPRATROPIUM 0.5 MG NEB (SCH) NEB ×2 (09:08→19:44)
[2016-09-07] MEDS: guaiFENesin E.R. 600 MG TAB PO SCH ×2 (09:14→20:16)
[2016-09-07] MEDS: busPIRone HCL 10 MG TAB PO SCH ×3 (09:14→17:56)
[2016-09-07] MEDS: LISINOPRIL 20 MG TAB PO SCH (09:14)
[2016-09-07] MEDS: amLODIPine BESYLATE 5 MG TAB PO SCH (09:14)
[2016-09-07] MEDS: HYDROCHLOROTHIAZIDE 25 MG TAB PO SCH (09:15)
[2016-09-07] MEDS: ZIPRASIDONE HCL 60 MG CAP PO SCH ×2 (09:15→20:16)
[2016-09-07] MEDS: TRIHEXYPHENIDYL HCL 5 MG TAB PO SCH ×2 (09:15→20:16)
[2016-09-07] MEDS: PROPRANOLOL HCL 20 MG TAB PO SCH ×3 (09:15→17:56)
[2016-09-07] MEDS: GABAPENTIN 300 MG CAP PO SCH ×3 (09:15→17:56)
--- NOTE | 2016-09-07 09:28 | HHI.PR ---
Subjective Remarks Says she is coughing, feels congested and can;t bring much sputum out. Has soem chest pain with coughing. Fels nauseated in the morning, did not vomit, tolerated food. No fever or chills. Objective Vitals Vital Signs Date Time Temp Pulse Resp B/P Pulse Ox O2 Delivery O2 Flow Rate FiO2 09/07/16 09:08 94 Nasal Cannula 2.00 09/07/16 08:07 97.9 66 22 137/81 97 09/07/16 05:55 67 20 136/81 95 09/07/16 04:45 147/86 09/07/16 04:00 97.9 82 21 182/97 96 09/07/16 00:00 97.7 74 19 141/75 96 09/06/16 20:56 96 Nasal Cannula 2.00 09/06/16 20:00 97.4 72 19 146/78 97 09/06/16 16:00 97.0 65 18 124/80 98 09/06/16 12:00 97.6 82 16 117/79 97 09/06/16 09:25 94 Nasal Cannula 2.00 I/O 09/06/16 09/06/16 09/06/16 09/07/16 09/07/16 09/07/16 07:00 15:00 23:00 07:00 15:00 23:00 Intake Total 480 ml 1080 ml 720 ml 1404 ml 2500 ml Balance 480 ml 1080 ml 720 ml 1404 ml 2500 ml Intake Oral 480 ml 1080 ml 720 ml 480 ml IV Total 924 ml 2500 ml # Voids 2 2 2 1 # Bowel Movements 1 Result Diagram: 09/07/16 0521 09/07/16 [address] Angiography 09/05/16 0000 Signed Impressions: Service Date/Time: Monday, September 05, 2016 19:00 - CONCLUSION: 1. No pulmonary embolus. 2. Atelectasis or consolidation at the medial right lung base and the left lingula. Sourav Penny MD Chest X-Ray 09/04/16 0385 Signed Impressions: Service Date/Time: Sunday, September 04, 2016 23:51 - CONCLUSION: Normal examination. David Kline MD Objective Remarks GENERAL: This is a well-nourished, well-developed patient, in no apparent distress. CARDIOVASCULAR: Regular rate and rhythm without murmurs, gallops, or rubs. RESPIRATORY: CTAB. Diminished breath sounds in the RLL. No wheezes, rales or rhonchi, GASTROINTESTINAL: Abdomen soft, non-tender, nondistended. No hepato-splenomegaly , or palpable masses. No guarding. MUSCULOSKELETAL: Extremities without clubbing, cyanosis, or edema. No joint tenderness, effusion, or edema noted. No calf tenderness. Negative Homans sign bilaterally. Moves bilateral lower extremities.. NEUROLOGICAL: Awake and alert but very anxious. Cranial nerves II through XII intact. Motor and sensory grossly within normal limits. Five out of 5 muscle strength in all muscle groups. Normal speech. A/P Problem List: (1) Sepsis ICD Code: A41.9 Status: Acute (2) UTI (urinary tract infection) ICD Code: N39.0 Status: Acute (3) Acute bronchitis ICD Code: J20.9 Status: Acute (4) SHARRI (acute kidney injury) ICD Code: N17.9 Status: Acute (5) Uncontrolled hypertension ICD Code: I10 Status: Acute (6) Anxiety ICD Code: F41.9 Status: Acute Assessment and Plan Sepsis present on admission. Tachycardia and leukocytosis. Resolving Sepsis likely secondary to UTI and acute bronchitis. Continue IV fluids Continue IV Rocephin and IV azithromycin. Chest pain Likely 2/2 cough/bronchitis ACS r/o with EKG and troponin neg UTI Rocephin IV Acute bronchitis versus PNA Acute respiratory failure on 4 L NC at thit time BiPAP overnight and prn Solumedrol IV taper as tolerated Pulm consult, appreciate recommendations H. influenzae mycoplasma pneumonia pending Sputum cx pending Abx as above Pulmonary consulted, recommend continuing abx and steroids. PFTs as outpatient to r/o obstructive lung disease Add IS and acapella Add cough medications SHARRI. Resolved Likely secondary to prerenal azotemia from dehydration. Continue IV fluids for now. HTN Continue home antihypertensive medications which include amlodipine, clonidine, lisinoprilHCTZ. Clonidine as needed for systolic blood pressure more than 160. Anxiety Continue Vistaril, buspirone, trazodone at bedtime, Geodon. GI prophylaxis: Place on PPI DVT plexus: SCDs, chemotherapy prophylaxis with Lovenox subcutaneously Discussed with the patient. nurse Problem Qualifiers (1) Sepsis: Qualified Code: A41.9 - Sepsis, due to unspecified organism (2) UTI (urinary tract infection): Qualified Code: N30.00 - Acute cystitis without hematuria (3) Acute bronchitis: Qualified Code: J20.9 - Acute bronchitis, unspecified organism Carmelita Gilliam MD Sep 07, 2016 09:28
[2016-09-07] MEDS ORDERED: PNEUMOCOCCAL POLYVALENT INJ 25 MCG/0.5 ML SYR IM ONE (10:00)
[2016-09-07] MEDS: cefTRIAXone INJ 2,000 MG in SODIUM CHLORIDE 0.9% INJ 100 ML IV SCH (10:28)
[2016-09-07] MEDS ORDERED: methylPREDNISolone SOD SUCC 125 MG/2 ML VIAL IVP SCH (14:00)
[2016-09-07] MEDS: guaiFENesin/DEXTROMETHORPHAN 200 MG/20 MG/10 ML CUP PO PRN (17:56)
--- NOTE | 2016-09-07 20:04 | HHI.PR ---
Subjective Remarks No events overnight. Patient is on 4L oxygen with good sats. CTA chest yesterday showed no PE. Breathing better Has cough, no sputum Objective Vital Signs Vital Signs Date Time Temp Pulse Resp B/P Pulse Ox O2 Delivery O2 Flow Rate FiO2 09/07/16 16:19 97.6 69 21 132/74 97 09/07/16 16:01 62 09/07/16 15:58 96 Nasal Cannula 2.00 09/07/16 12:08 79 09/07/16 12:00 97.5 70 22 131/70 92 09/07/16 09:08 94 Nasal Cannula 2.00 09/07/16 08:07 97.9 66 22 137/81 97 09/07/16 08:02 64 09/07/16 05:55 67 20 136/81 95 09/07/16 04:45 147/86 09/07/16 04:00 97.9 82 21 182/97 96 09/07/16 00:00 97.7 74 19 141/75 96 09/06/16 20:56 96 Nasal Cannula 2.00 I/O 09/06/16 09/06/16 09/06/16 09/07/16 09/07/16 09/07/16 07:00 15:00 23:00 07:00 15:00 23:00 Intake Total 480 ml 1080 ml 720 ml 1404 ml 2980 ml Balance 480 ml 1080 ml 720 ml 1404 ml 2980 ml Intake Oral 480 ml 1080 ml 720 ml 480 ml 480 ml IV Total 924 ml 2500 ml # Voids 2 2 2 1 2 # Bowel Movements 1 Result Diagram: 09/07/16 0521 09/07/16 05 Objective Remarks GENERAL: Patient is 55 yo lying in bed in NAD SKIN: Warm and dry. HEAD: Normocephalic. EYES: No scleral icterus. No injection or drainage. NECK: Supple, trachea midline. No JVD or lymphadenopathy. CARDIOVASCULAR: Regular rate and rhythm without murmurs, gallops, or rubs. RESPIRATORY: Breath sounds equal bilaterally. No accessory muscle use. GASTROINTESTINAL: Abdomen soft, non-tender, nondistended. MUSCULOSKELETAL: No cyanosis, or edema. Neuro: Awake and alert. A/P Assessment and Plan 1. Respiratory insufficiency. 2. Tracheobronchitis. 3. Subacute cough-ddx: 2nd to tracheobronchitis, KYLER inhibitor, or other infectious process. 4. Leukocytosis 5. Urinary tract infection. 6. Mild acute kidney injury. 7. Diabetes mellitus. 8. Hypertension 9. Hyperlipidemia. 10. Obesity. 11. History of depression. RECOMMENDATIONS Continue with oxygen and maintain sats above 92%. Bronchodilators, BIPAP p.r.n. for respiratory distress. CTA chest showed no PE Continue with abx(Rocephin, azithromycin) monitor for signs of infections(fever and WBC). Follow up on cultures PFT as an outpatient to rule out obstructive and restrictive lung disease in addition to sleep study to rule out CARMEN Monitor renal function and electrolyte replacement as needed. On NS@84ml/hr Continue with antihypertensive medications. GI and DVT prophylaxis per primary team. on Lovenox 40 mg Subcu daily. Decrease Solumedrol 40 mg q 12 hrs OOB and ambulate Jose Hudson MD Sep 07, 2016 20:04
[2016-09-07] MEDS: traZODone HCL 100 MG TAB PO SCH (20:16)
[2016-09-08] VITALS (12 sets, daily range): BP systolic 133–187; BP diastolic 76–98; PULSE 54–67; RESP 18–20; TEMP 96.9–99.4; O2SAT 91–96
[2016-09-08] MEDS: guaiFENesin/DEXTROMETHORPHAN 200 MG/20 MG/10 ML CUP PO PRN (03:43)
[2016-09-08 06:08] LABS: AUTOMATED NEUTROPHIL # 11.3 TH/MM3 (1.8-7.7); BASOPHIL % 0.1 % (0.0-2.0); HEMATOCRIT 35.3 % (35.0-46.0); LYMPH % 7.1 % (9.0-44.0); LYMPHOCYTE # 0.9 TH/MM3 (1.0-4.8); MEAN CELL VOLUME 80.5 FL (80.0-100.0); NEUT % 86.8 % (16.0-70.0); PLATELET COUNT 200 TH/MM3 (150-450); RED BLOOD COUNT 4.39 MIL/MM3 (4.00-5.30); RED CELL DISTRIBUTION WIDTH 14.3 % (11.6-17.2)
[2016-09-08 06:11] LABS: HEMO FLAGS AUTO DIFF
[2016-09-08] MEDS: INSULIN ASPART SUPPLEMENTAL SCALE SQ SCH ×4 (06:17→21:10)
[2016-09-08 06:25] LABS: BICARBONATE 32.8 MEQ/L (21.0-32.0); POTASSIUM 3.9 MEQ/L (3.5-5.1)
[2016-09-08 07:33] LABS: BANDS 4 % (0-6); CORRECTED NUCLEATED RBC 1 /100 WBC (0-0); METAMYELOCYTES 1 % (0-1); MYELOCYTES 2 % (0-0); NEUTROPHIL # MANUAL DIFF 10.9 TH/MM3 (1.8-7.7); POLYS (SEG NEUTROPHILS) 77 % (16-70); WBC DIFF SAMPLE 100
[2016-09-08 07:34] LABS: SCAN/DIFF FINAL DIFF MANUAL
[2016-09-08] MEDS: AZITHROMYCIN INJ 500 MG in SODIUM CHLOR 0.9% 250 ML INJ 250 ML IV SCH (07:57)
[2016-09-08] MEDS: RESP: ALBUTEROL 2.5 MG/IPRATROPIUM 0.5 MG NEB (SCH) NEB ×2 (08:30→21:53)
[2016-09-08] MEDS: ENOXAPARIN SODIUM 40 MG/0.4 ML SYRINGE SQ SCH (08:41)
[2016-09-08] MEDS: guaiFENesin E.R. 600 MG TAB PO SCH ×2 (08:41→21:02)
[2016-09-08] MEDS: TRIHEXYPHENIDYL HCL 5 MG TAB PO SCH ×2 (08:41→21:02)
[2016-09-08] MEDS: LISINOPRIL 20 MG TAB PO SCH (08:41)
[2016-09-08] MEDS: GABAPENTIN 300 MG CAP PO SCH ×3 (08:41→17:37)
[2016-09-08] MEDS: methylPREDNISolone SOD SUCC 125 MG/2 ML VIAL IVP SCH ×2 (08:41→21:03)
[2016-09-08] MEDS: busPIRone HCL 10 MG TAB PO SCH ×3 (08:41→17:37)
[2016-09-08] MEDS: PROPRANOLOL HCL 20 MG TAB PO SCH ×3 (08:41→17:37)
[2016-09-08] MEDS: HYDROCHLOROTHIAZIDE 25 MG TAB PO SCH (08:41)
[2016-09-08] MEDS: ZIPRASIDONE HCL 60 MG CAP PO SCH ×2 (08:41→21:01)
[2016-09-08] MEDS: amLODIPine BESYLATE 5 MG TAB PO SCH (08:41)
[2016-09-08] MEDS: SODIUM CHLORIDE 0.9% FLUSH 10 ML FLUSH IV FLUSH SCH ×2 (09:00→21:03)
[2016-09-08] MEDS: cefTRIAXone INJ 2,000 MG in SODIUM CHLORIDE 0.9% INJ 100 ML IV SCH (09:59)
[2016-09-08] MEDS: SODIUM CHLOR 0.9% 1000 ML INJ 1,000 ML IV SCH ×2 (09:59→21:04)
--- NOTE | 2016-09-08 11:03 | HHI.PR ---
Subjective Remarks Patient seen and examined morning. Says she's still coughing and feels her lungs are congested and that she cannot get the sputum. Does have some chest pain and tenderness with coughing consistent with costochondritis. She denied feeling nauseated this morning. She says she is not on oxygen at home and still feels like she needs to 2 L this time. She thinks she is getting closer to her baseline however does not feel comfortable with going home. Objective Vitals Vital Signs Date Time Temp Pulse Resp B/P Pulse Ox O2 Delivery O2 Flow Rate FiO2 09/08/16 08:30 96 Nasal Cannula 0.50 09/08/16 07:50 97.6 66 20 187/98 91 09/08/16 04:00 99.4 65 18 133/92 96 09/08/16 00:00 97.9 65 20 152/77 94 09/08/16 00:00 60 09/07/16 20:00 63 09/07/16 20:00 97.2 63 18 147/85 97 09/07/16 16:19 97.6 69 21 132/74 97 09/07/16 16:01 62 09/07/16 15:58 96 Nasal Cannula 2.00 09/07/16 12:08 79 09/07/16 12:00 97.5 70 22 131/70 92 I/O 09/07/16 09/07/16 09/07/16 09/08/16 09/08/16 09/08/16 07:00 15:00 23:00 07:00 15:00 23:00 Intake Total 1404 ml 2980 ml 360 ml 120 ml 2060 ml Balance 1404 ml 2980 ml 360 ml 120 ml 2060 ml Intake Oral 480 ml 480 ml 360 ml 120 ml IV Total 924 ml 2500 ml 2060 ml # Voids 1 2 3 2 # Bowel Movements 0 0 Result Diagram: 09/08/16 0444 09/08/16 [address] Angiography 09/05/16 0000 Signed Impressions: Service Date/Time: Monday, September 05, 2016 19:00 - CONCLUSION: 1. No pulmonary embolus. 2. Atelectasis or consolidation at the medial right lung base and the left lingula. Sourav Penny MD Chest X-Ray 09/04/16 2159 Signed Impressions: Service Date/Time: Sunday, September 04, 2016 23:51 - CONCLUSION: Normal examination. David Kline MD Objective Remarks GENERAL: This is a well-nourished, well-developed patient, in no apparent distress. CARDIOVASCULAR: Regular rate and rhythm without murmurs, gallops, or rubs. RESPIRATORY: CTAB. Diminished breath sounds in the RLL. No wheezes, rales or rhonchi, GASTROINTESTINAL: Abdomen soft, non-tender, nondistended. No hepato-splenomegaly , or palpable masses. No guarding. MUSCULOSKELETAL: Extremities without clubbing, cyanosis, or edema. No joint tenderness, effusion, or edema noted. No calf tenderness. Negative Homans sign bilaterally. Moves bilateral lower extremities.. NEUROLOGICAL: Awake and alert but very anxious. Motor and sensory grossly within normal limits. Five out of 5 muscle strength in all muscle groups. Normal speech. A/P Problem List: (1) Sepsis ICD Code: A41.9 Status: Acute (2) UTI (urinary tract infection) ICD Code: N39.0 Status: Acute (3) Acute bronchitis ICD Code: J20.9 Status: Acute (4) SHARRI (acute kidney injury) ICD Code: N17.9 Status: Acute (5) Uncontrolled hypertension ICD Code: I10 Status: Acute (6) Anxiety ICD Code: F41.9 Status: Acute Assessment and Plan Sepsis present on admission. Tachycardia and leukocytosis. Resolving Sepsis likely secondary to UTI and acute bronchitis. Continue IV fluids Continue IV Rocephin and IV azithromycin. Chest pain likely costochondritis Likely 2/2 cough/bronchitis ACS r/o with EKG and troponin neg Tylenol when necessary UTI Rocephin IV Acute bronchitis versus PNA Acute respiratory failure on 4 L NC at thit time BiPAP overnight and prn Solumedrol IV taper as tolerated Pulm consult, appreciate recommendations H. influenzae mycoplasma pneumonia pending Sputum cx normal caitlin Abx as above Pulmonary consulted, recommend continuing abx and steroids. PFTs as outpatient to r/o obstructive lung disease Continue IS and acapella Continue cough medications SHARRI. Resolved Likely secondary to prerenal azotemia from dehydration. Continue IV fluids for now. HTN Continue home antihypertensive medications which include amlodipine, clonidine, lisinoprilHCTZ. Clonidine as needed for systolic blood pressure more than 160. Anxiety Continue Vistaril, buspirone, trazodone at bedtime, Geodon. GI prophylaxis: Place on PPI DVT plexus: SCDs, chemotherapy prophylaxis with Lovenox subcutaneously Problem Qualifiers (1) Sepsis: Qualified Code: A41.9 - Sepsis, due to unspecified organism (2) UTI (urinary tract infection): Qualified Code: N30.00 - Acute cystitis without hematuria (3) Acute bronchitis: Qualified Code: J20.9 - Acute bronchitis, unspecified organism Reese Morrell MD R2 Sep 08, 2016 11:03
[2016-09-08] MEDS ORDERED: ACETAMINOPHEN 325 MG TAB PO PRN (12:00)
--- NOTE | 2016-09-08 15:37 | HHI.PR ---
Subjective Remarks No events overnight. Patient is on 4L oxygen with good sats. CTA chest yesterday showed no PE. Breathing better Has cough, no sputum no fever Mild wheezing Objective Vital Signs Vital Signs Date Time Temp Pulse Resp B/P Pulse Ox O2 Delivery O2 Flow Rate FiO2 09/08/16 12:22 59 09/08/16 12:00 98.2 56 20 133/76 95 09/08/16 08:30 96 Nasal Cannula 0.50 09/08/16 08:03 64 09/08/16 07:50 97.6 66 20 187/98 91 09/08/16 04:00 99.4 65 18 133/92 96 09/08/16 00:00 97.9 65 20 152/77 94 09/08/16 00:00 60 09/07/16 20:00 63 09/07/16 20:00 97.2 63 18 147/85 97 09/07/16 16:19 97.6 69 21 132/74 97 09/07/16 16:01 62 09/07/16 15:58 96 Nasal Cannula 2.00 I/O 09/07/16 09/07/16 09/07/16 09/08/16 09/08/16 09/08/16 07:00 15:00 23:00 07:00 15:00 23:00 Intake Total 1404 ml 2980 ml 360 ml 120 ml 2060 ml Balance 1404 ml 2980 ml 360 ml 120 ml 2060 ml Intake Oral 480 ml 480 ml 360 ml 120 ml IV Total 924 ml 2500 ml 2060 ml # Voids 1 2 3 2 # Bowel Movements 0 0 Result Diagram: 09/08/16 0444 09/08/16 0444 Objective Remarks GENERAL: Patient is 55 yo lying in bed in NAD SKIN: Warm and dry. HEAD: Normocephalic. EYES: No scleral icterus. No injection or drainage. NECK: Supple, trachea midline. No JVD or lymphadenopathy. CARDIOVASCULAR: Regular rate and rhythm without murmurs, gallops, or rubs. RESPIRATORY: Breath sounds equal bilaterally. No accessory muscle use. GASTROINTESTINAL: Abdomen soft, non-tender, nondistended. MUSCULOSKELETAL: No cyanosis, or edema. Neuro: Awake and alert. A/P Assessment and Plan 1. Respiratory insufficiency. 2. Tracheobronchitis. 3. Subacute cough-ddx: 2nd to tracheobronchitis, KYLER inhibitor, or other infectious process. 4. Leukocytosis 5. Urinary tract infection. 6. Mild acute kidney injury. 7. Diabetes mellitus. 8. Hypertension 9. Hyperlipidemia. 10. Obesity. 11. History of depression. RECOMMENDATIONS Continue with oxygen and maintain sats above 92%. Bronchodilators, BIPAP p.r.n. for respiratory distress. CTA chest showed no PE Continue with abx(Rocephin, azithromycin) monitor for signs of infections(fever and WBC). Follow up on cultures PFT as an outpatient to rule out obstructive and restrictive lung disease in addition to sleep study to rule out CARMEN Monitor renal function and electrolyte replacement as needed. On NS@84ml/hr Continue with antihypertensive medications. GI and DVT prophylaxis per primary team. on Lovenox 40 mg Subcu daily. Solumedrol 40 mg q 12 hrs OOB and ambulate Jose Hudson MD Sep 08, 2016 15:37
[2016-09-08] MEDS: traZODone HCL 100 MG TAB PO SCH (21:01)
[2016-09-09] VITALS (8 sets, daily range): BP systolic 115–183; BP diastolic 76–100; PULSE 55–101; RESP 18–23; TEMP 96.7–97.9; O2SAT 93–100
[2016-09-09] MEDS: RESP: ALBUTEROL 2.5 MG/3 ML NEB (PRN) INH (02:47)
[2016-09-09] MEDS: cloNIDine HCL 0.1 MG TAB PO PRN (05:45)
[2016-09-09] MEDS: INSULIN ASPART SUPPLEMENTAL SCALE SQ SCH ×2 (05:49→12:29)
[2016-09-09] MEDS: SODIUM CHLOR 0.9% 1000 ML INJ 1,000 ML IV SCH (05:51)
[2016-09-09 07:16] LABS: HEMATOCRIT 35.3 % (35.0-46.0); MEAN CORPUSCULAR HEMOGLOBIN 25.9 PG (27.0-34.0); MEAN CORPUSCULAR HGB CONC 32.4 % (32.0-36.0); PLATELET COUNT 205 TH/MM3 (150-450); RED BLOOD COUNT 4.42 MIL/MM3 (4.00-5.30); RED CELL DISTRIBUTION WIDTH 14.2 % (11.6-17.2); REVIEW FLAG FINAL; WHITE BLOOD COUNT 10.5 TH/MM3 (4.0-11.0)
[2016-09-09 07:37] LABS: BICARBONATE 30.8 MEQ/L (21.0-32.0)
[2016-09-09] MEDS: RESP: ALBUTEROL 2.5 MG/IPRATROPIUM 0.5 MG NEB (SCH) NEB (08:19)
[2016-09-09] MEDS: guaiFENesin E.R. 600 MG TAB PO SCH (08:19)
[2016-09-09] MEDS: methylPREDNISolone SOD SUCC 125 MG/2 ML VIAL IVP SCH (08:19)
[2016-09-09] MEDS: HYDROCHLOROTHIAZIDE 25 MG TAB PO SCH (08:19)
[2016-09-09] MEDS: AZITHROMYCIN INJ 500 MG in SODIUM CHLOR 0.9% 250 ML INJ 250 ML IV SCH (08:19)
[2016-09-09] MEDS: GABAPENTIN 300 MG CAP PO SCH ×2 (08:20→12:33)
[2016-09-09] MEDS: TRIHEXYPHENIDYL HCL 5 MG TAB PO SCH (08:20)
[2016-09-09] MEDS: amLODIPine BESYLATE 5 MG TAB PO SCH (08:20)
[2016-09-09] MEDS: PROPRANOLOL HCL 20 MG TAB PO SCH ×2 (08:20→12:29)
[2016-09-09] MEDS: LISINOPRIL 20 MG TAB PO SCH (08:20)
[2016-09-09] MEDS: SODIUM CHLORIDE 0.9% FLUSH 10 ML FLUSH IV FLUSH SCH (08:20)
[2016-09-09] MEDS: ENOXAPARIN SODIUM 40 MG/0.4 ML SYRINGE SQ SCH (08:21)
[2016-09-09] MEDS: ZIPRASIDONE HCL 60 MG CAP PO SCH (08:22)
[2016-09-09] MEDS: busPIRone HCL 10 MG TAB PO SCH ×2 (08:33→12:29)
[2016-09-09] MEDS: cefTRIAXone INJ 2,000 MG in SODIUM CHLORIDE 0.9% INJ 100 ML IV SCH (10:24)
[2016-09-09] MEDS ORDERED: LEVA750T9 PO (12:21)
--- NOTE | 2016-09-09 12:29 | HHI.DS ---
Discharge Summary Admission Date Sep 05, 2016 at 2:26 am Discharge Date: Sep 09, 2016 Admitting Diagnosis Acute bronchitis; sirs; h/o dm; h/o htn (1) Sepsis ICD Code: A41.9 (2) UTI (urinary tract infection) ICD Code: N39.0 (3) Acute bronchitis ICD Code: J20.9 (4) SHARRI (acute kidney injury) ICD Code: N17.9 (5) Uncontrolled hypertension ICD Code: I10 (6) Anxiety ICD Code: F41.9 Brief History - From Admission This is a 55-year-old female with past medical history as stated below who presents to [facility] complaining of upper retrograde infection symptoms including cough, productive sputum, shortness of breath associated with some wheezing, fevers and chills. The patient states that he went to see her doctor who prescribes her medications that she cannot remember the names of. However she kept getting worst. The patient also complains of some chest pain which is substernal and brought up by coughing. Denies abdominal pain, nausea, vomiting, denies headache, denies dysuria, denies diarrhea. CBC/BMP: 09/09/16 0612 09/09/16 0612 Significant Findings Laboratory Tests Test 09/07/16 09/08/16 09/09/16 05:21 04:44 06:12 White Blood Count 16.3 TH/MM3 13.0 TH/MM3 (4.0-11.0) (4.0-11.0) Hemoglobin 10.8 GM/DL 11.0 GM/DL 11.4 GM/DL (11.6-15.3) (11.6-15.3) (11.6-15.3) Hematocrit 34.8 % (35.0-46.0) Mean Corpuscular Hemoglobin 24.9 PG 25.0 PG 25.9 PG (27.0-34.0) (27.0-34.0) (27.0-34.0) Mean Corpuscular Hemoglobin 30.9 % 31.0 % Concent (32.0-36.0) (32.0-36.0) Neutrophils (%) (Auto) 87.8 % 86.8 % (16.0-70.0) (16.0-70.0) Lymphocytes (%) (Auto) 6.6 % 7.1 % (9.0-44.0) (9.0-44.0) Neutrophils # (Auto) 14.3 TH/MM3 11.3 TH/MM3 (1.8-7.7) (1.8-7.7) Estimat Glomerular Filtration 77 ML/MIN (>89) 71 ML/MIN (>89) 77 ML/MIN (>89) Rate Random Glucose 282 MG/DL 245 MG/DL 268 MG/DL (74-106) (74-106) (74-106) Lymphocytes # (Auto) 0.9 TH/MM3 (1.0-4.8) Neutrophils % (Manual) 77 % (16-70) Neutrophils # (Manual) 10.9 TH/MM3 (1.8-7.7) Myelocytes 2 % (0-0) Nucleated Red Blood Cells 1 /100 WBC (0-0) Carbon Dioxide Level 32.8 MEQ/L (21.0-32.0) Blood Urea Nitrogen 21 MG/DL (7-18) 20 MG/DL (7-18) PE at Discharge GENERAL: This is a well-nourished, well-developed patient, in no apparent distress. CARDIOVASCULAR: Regular rate and rhythm without murmurs, gallops, or rubs. RESPIRATORY: CTAB. Diminished breath sounds in the RLL. No wheezes, rales or rhonchi, GASTROINTESTINAL: Abdomen soft, non-tender, nondistended. No hepato-splenomegaly , or palpable masses. No guarding. MUSCULOSKELETAL: Extremities without clubbing, cyanosis, or edema. No joint tenderness, effusion, or edema noted. No calf tenderness. Negative Homans sign bilaterally. Moves bilateral lower extremities.. NEUROLOGICAL: Awake and alert but very anxious. Motor and sensory grossly within normal limits. Five out of 5 muscle strength in all muscle groups. Normal speech. Pt update on day of discharge Ms. Dillon is doing well. She is not requiring any supplemental O2. No fever, chills. She says her BP at home is usually well controlled and no trouble with Lisinopril including any dry cough. Thus, we will continue her home regimen for blood pressure. Pt Condition on Discharge: Good Discharge Disposition: Discharge Home Discharge Time: > 30 minutes Discharge Instructions DIET: Follow Instructions for: Diabetic Diet Activities you can perform: Regular-No Restrictions Follow up Referrals: PCP Follow-up - 1 Week New Medications: Levofloxacin (Levaquin) 750 Mg Tablet 1 TAB PO DAILY Infection #2 TAB Continued Medications: Amlodipine (Amlodipine) 5 Mg Tab 5 MG PO DAILY Blood Pressure Management #30 Ref 0 TAB Buspirone (Buspirone) 30 Mg Tab 30 MG PO TID Anxiety Ref 0 TAB Clonidine ER 12 HR (Clonidine ER 12 HR) 0.1 Mg Tab 0.1 MG PO TID ADHD #30 Ref 0 TAB Gabapentin (Gabapentin) 300 Mg Cap 300 MG PO TID #90 Ref 0 CAP Hydroxyzine Pamoate (Vistaril) 50 Mg Cap 50 MG PO TID Anxiety Ref 0 CAP Lisinopril-Hctz (Zestoretic) 20-12.5 Mg Tab 1 TAB PO DAILY Blood Pressure Management #30 Ref 0 TAB Metformin (Metformin) 500 Mg Tab 500 MG PO BID With meals Blood Sugar Management #60 Ref 0 TAB Propranolol (Propranolol) 20 Mg Tab 20 MG PO TID #60 Ref 0 TAB Trazodone (Trazodone) 300 Mg Tab 300 MG PO HS Control Depression #30 Ref 0 TAB Trihexyphenidyl (Trihexyphenidyl) 5 Mg Tab 5 MG PO BID Parkinson Disease Mgmt #60 Ref 0 TAB Ziprasidone (Geodon) 60 Mg Cap 60 MG PO BID #60 Ref 0 CAP Nick Rocha DO Sep 09, 2016 12:29 pm
[2016-09-09] MEDS ORDERED: hydrALAZINE HCL 25 MG TAB PO SCH (14:00)
[2016-09-10] MEDS ORDERED: amLODIPine BESYLATE 5 MG TAB PO SCH (09:00)
== END 2016-09-09 14:07 | disposition home or self-care (01) | DRG 871 ==
LOC: NEPC 23:28 → NEDA 09-05 02:26 → HOCB 09-05 06:37
PROVIDERS: ADMIT Hospitalist; ATTEND Hospitalist
DX: A41.9 Sepsis, unspecified organism (principal); J96.00 Acute respiratory failure, unspecified whether with hypoxia or hypercapnia; N17.9 Acute kidney failure, unspecified; N30.00 Acute cystitis without hematuria; J20.9 Acute bronchitis, unspecified; F20.9 Schizophrenia, unspecified; I10 Essential (primary) hypertension; E11.9 Type 2 diabetes mellitus without complications; K21.9 Gastro-esophageal reflux disease without esophagitis; Z82.49 Family history of ischemic heart disease and other diseases of the circulatory system; F41.9 Anxiety disorder, unspecified; E78.5 Hyperlipidemia, unspecified; Z83.3 Family history of diabetes mellitus; Z80.3 Family history of malignant neoplasm of breast; R00.0 Tachycardia, unspecified; E86.0 Dehydration; M94.0 Chondrocostal junction syndrome [Tietze]; Z79.84 Long term (current) use of oral hypoglycemic drugs; E66.9 Obesity, unspecified; J30.89 Other allergic rhinitis; R06.89 Other abnormalities of breathing
CPT/HCPCS: 71010; 71275; 76937; 80048; 80053; 81001; 82550; 82948; 83735; 83880; 84484; 85007; 85025; 85027; 85610; 85730; 86684; 86738; 87040; 87070; 87086; 87205; 93005; 94150; 94640; 94664; 94667; 94668; 96365; J0456; J0696; J1650; J1815; J1956; J2930; J7030; J7050; J7613; Q9967

== ENCOUNTER 2017-01-29 23:42 | Emergency (ER) | payer OTHER, MEDICAID ==
[~2017-01-29] VITALS: Ht 167.6 cm; Wt 105.0 kg
[~2017-01-29 23:42] MED LIST changes: -BACT400T PO; -CIPR-9 PO; -FURO1TAB62 PO; +LEVA750T9 PO; -NORC5TAB PO; -PERP4TAB8 PO; -POTA10CA PO; -TRAM50TA PO
[2017-01-29 23:43] VITALS: BP 150/102; PULSE 83; RESP 16; TEMP 97.6; O2SAT 98
[2017-01-30] MEDS ORDERED: KETOROLAC TROMETHAMINE 60 MG/2 ML (IM) VIAL IM ONE
[2017-01-30] MEDS ORDERED: SIMV20TA PO (00:03)
--- NOTE | 2017-01-30 00:05 | PD ---
HPI Chief Complaint: Injury Time Seen by Provider: 23:51 Travel History International Travel<30 days: No Contact w/Intl Traveler<30days: No Traveled to known affect area: No History of Present Illness HPI Patient comes in complaining of right arm pain ongoing for 4 days. Patient states she tripped and fell falling forward causing pain in her arm. Patient states pain is throughout her arm and is achy like in nature. Patient denies doing anything for this. Patient reports pain is worse with certain movement. Denies anything making it better. Denies hitting her head, loss consciousness, numbness or tingling, neck pain, chest pain, shortness of breath, or other known trauma. PFSH Past Medical History Arthritis: No Asthma: No Autoimmune Disease: Yes Blood Disorders: No Anxiety: Yes Depression: Yes Heart Rhythm Problems: No Cancer: No Cardiac Catheterization: Yes Cardiovascular Problems: No High Cholesterol: No Chemotherapy: No Chest Pain: Yes Congestive Heart Failure: No COPD: No Cerebrovascular Accident: No Diabetes: Yes Patient Takes Glucophage: Yes Diminished Hearing: No Endocrine: No Gastrointestinal Disorders: No GERD: Yes Genitourinary: No Headaches: Yes Hepatitis: No Hiatal Hernia: No Hypertension: Yes Immune Disorder: No Kidney Stones: Yes Musculoskeletal: No Neurologic: No Psychiatric: No Reproductive: No Respiratory: No Immunizations Current: Yes Migraines: Yes Myocardial Infarction: No Radiation Therapy: No Renal Failure: No Schizophrenia: Yes Seizures: No Sickle Cell Disease: No Sleep Apnea: No Thyroid Disease: No Ulcer: No PNEUMOCCOCAL Vaccine (Year): 2008 ?: Not Menopausal: Yes : 2 Para: 2 Miscarriage: 0 : 0 Tubal Ligation: Yes Past Surgical History Abdominal Surgery: Yes (gall bladder) AICD: No Arteriovenous Shunt: No Cholecystectomy: Yes Coronary Artery Bypass Graft: No Ear Surgery: No Endocrine Surgery: No Eye Surgery: No Genitourinary Surgery: No Gynecologic Surgery: Yes (tubal ligation) Insulin Pump: No Joint Replacement: No Oral Surgery: No Pacemaker: No Tonsillectomy: Yes Other Surgery: No Family History Family Myocardial Infarction: Yes (FATHER) Social History Alcohol Use: No Tobacco Use: No Substance Use: No Allergies-Medications (Allergen,Severity, Reaction): Coded Allergies: No Known Allergies (Verified Adverse Reaction, Unknown, 01/30/17) Reported Meds & Prescriptions Reported Meds & Active Scripts Active Mobic (Meloxicam) 7.5 Mg Tab 7.5 Mg PO DAILY PRN Reported Simvastatin 20 Mg Tab 20 Mg PO DAILY Amlodipine (Amlodipine Besylate) 5 Mg Tab 5 Mg PO DAILY Buspirone (Buspirone HCl) 30 Mg Tab 30 Mg PO TID Clonidine ER 12 HR (Clonidine HCl) 0.1 Mg Tab 0.1 Mg PO TID Vistaril (Hydroxyzine Pamoate) 50 Mg Cap 50 Mg PO TID Zestoretic (Lisinopril-Hctz) 20-12.5 Mg Tab 1 Tab PO DAILY Metformin (Metformin HCl) 500 Mg Tab 500 Mg PO BID With meals Propranolol (Propranolol HCl) 20 Mg Tab 20 Mg PO TID Trazodone (Trazodone HCl) 300 Mg Tab 300 Mg PO HS Trihexyphenidyl (Trihexyphenidyl HCl) 5 Mg Tab 5 Mg PO BID Geodon (Ziprasidone) 60 Mg Cap 60 Mg PO BID Gabapentin 300 Mg Cap 300 Mg PO TID Review of Systems Except as stated in HPI: all other systems reviewed are Neg Physical Exam Narrative GENERAL: Well-developed, overly nourished, in no acute distress, and non-ill appearing. SKIN: Focused skin assessment warm and dry. HEAD: Atraumatic. Normocephalic. EYES: Pupils equal and round. EOMI. No scleral icterus. No injection or drainage. ENT: No nasal bleeding or discharge. Mucous membranes pink and moist. NECK: Trachea midline. Supple. No nuclear rigidity. CARDIOVASCULAR: Radial pulses 2+, intact, and equal bilaterally. Capillary refill less than 2 seconds. RESPIRATORY: No accessory muscle use. No respiratory distress. MUSCULOSKELETAL: No obvious deformities. No clubbing. No cyanosis. No edema. Decreased range of motion right upper extremity secondary. Shoulder:FROM equal BL with passive flexion, extension, Abduction, Adduction, internal/external rotation, and pronation/supination. Sensation equal BL deltoid muscles. Pulses equal BL distal to injury. Capillary refill less than 2 seconds distal to injury and equal BL. FROM distal to injury and equal BL. Strength distal to injury equal BL. NV intact distal to injury equal BL. Flexion and extension of thumb equal BL. Equal strength and movement with abduction/adductions of BL fingers. Quick Technician strength equal BL. NEUROLOGICAL: Awake and alert. No obvious cranial nerve deficits. Motor grossly within normal limits. Normal speech. PSYCHIATRIC: Appropriate mood and affect; insight and judgment normal. Data Data Last Documented VS Vital Signs Date Time Temp Pulse Resp B/P (MAP) Pulse Ox O2 Delivery O2 Flow Rate FiO2 01/30/17 00:43 01/29/17 23:43 97.6 83 16 98 Orders Orders Humerus (Min 2vws) (01/30/17 ) Forearm (2vws) (01/30/17 ) Ice/Cold Pack (01/30/17 00:00) Ketorolac Inj (Toradol Inj) (01/30/17 00:00) Ed Discharge Order (01/30/17 00:41) MDM Medical Decision Making Medical Screen Exam Complete: Yes Emergency Medical Condition: Yes Interpretation(s) Last Impressions Radius/Ulna X-Ray 01/30/17 0000 Signed Impressions: Service Date/Time: Monday, January 30, 2017 00:20 - CONCLUSION: Negative trauma study. Carlos Ortiz MD Humerus X-Ray 01/30/17 0000 Signed Impressions: Service Date/Time: Monday, January 30, 2017 00:16 - CONCLUSION: Negative trauma study. Carlos Ortiz MD Differential Diagnosis Fracture, strain, contusion, dislocation Narrative Course There is no clinical evidence for fracture. There is no clinical evidence to suspect bony injury by exam. Radiographic examination revealed no fracture seen at this time. No obvious ligamental injury or internal derangement is noted at this time. The distal extremity appears neurovascularly intact, without evidence of neurovascular injury nor compartment syndrome. Tendon exam also was intact. The patient was discharged on pain medication and given warnings for vascular compromise. The patient is to follow up with primary care provider or Orthopedics. The patient agrees with plan. Patient in no obvious distress upon re-evaluation. All pertinent Radiology result(s) discussed with patient. Patient was asked if they wanted to speak to my attending, which the patient did not wish to do at this time. Any questions/ concerns in reference to patient diagnosis/condition discussed and clarified prior to patient's discharge. Reinforced sheer importance of close follow up with patient's primary physician or primary care clinic. Instructed patient to return to ED immediately, if symptoms return/worsen. Patient showed understanding of above instructions. Further instructions and recommendations were detailed in discharge paperwork. Patient ambulated without difficulty out of ED at discharge. Diagnosis Primary Impression: Right arm pain Referrals: Colten Siddiqui Jr., MD Patient Instructions: Arm Pain (ED), General Instructions Additional Instructions: Follow-up with your primary care physician and/or orthopedic in 3-5 days for reevaluation. Take all medication as prescribed. Return to the emergency department if symptoms get worse. Med/Other Pt SpecificInfo: Prescription(s) given Scripts Meloxicam (Mobic) 7.5 Mg Tab 7.5 MG PO DAILY Y for PAIN SCALE 1 TO 10, #7 TAB 0 Refills Prov: Emigdio Mclean MD 01/30/17 Disposition: 01 DISCHARGE HOME Condition: Stable Erik Franks Jan 30, 2017 00:05
--- NOTE | 2017-01-30 00:34 | RADRPT ---
EXAM DATE/TIME: 01/30/2017 00:16 [facility] COMPARISON: HUMERUS RIGHT (MIN 2VWS), November 29, 2014, 0:02. INDICATIONS : Pain post fall x 4 days MEDICAL HISTORY : Hypertension. Diabetes mellitus type II. SURGICAL HISTORY : Tubal ligation. Cholecystectomy. Cardiac cath ENCOUNTER: Initial ACUITY: 4 - 6 days PAIN SCORE: 7/10 LOCATION: Right Humerus FINDINGS: Two view examination of the right humerus demonstrates no evidence of fracture or dislocation. Bony mineralization is normal. The soft tissue structures are intact. There is a small calcification kedar g the lateral humeral head. CONCLUSION: Negative trauma study. Carlos Ortiz MD on January 30, 2017 at 0:32 Board Certified Radiologist. This report was verified electronically.
--- NOTE | 2017-01-30 00:35 | RADRPT ---
EXAM DATE/TIME: 01/30/2017 00:20 [facility] COMPARISON: No previous studies available for comparison. INDICATIONS : Pain post fall x 4 days MEDICAL HISTORY : Hypertension. Diabetes mellitus type II. SURGICAL HISTORY : Tubal ligation. Cholecystectomy. Cardiac cath ENCOUNTER: Initial ACUITY: 4 - 6 days PAIN SCORE: 7/10 LOCATION: Right Forearm FINDINGS: Two view examination of the right forearm demonstrates no evidence of fracture or dislocation. Bony mineralization is normal. The soft tissue structures are intact. CONCLUSION: Negative trauma study. Carlos Ortiz MD on January 30, 2017 at 0:33 Board Certified Radiologist. This report was verified electronically.
[2017-01-30] MEDS ORDERED: MOBI7.5T PO (00:41)
== END 2017-01-30 01:04 | disposition home or self-care (01) ==
LOC: NEPD 23:42
DX: M79.601 Pain in right arm (principal); F41.9 Anxiety disorder, unspecified; F32.9 Major depressive disorder, single episode, unspecified; E11.9 Type 2 diabetes mellitus without complications; K21.9 Gastro-esophageal reflux disease without esophagitis; I10 Essential (primary) hypertension; F20.9 Schizophrenia, unspecified; Z79.899 Other long term (current) drug therapy
CPT/HCPCS: 73060; 73090; 96372; 99284; J1885

== ENCOUNTER 2017-03-14 07:37 | Emergency (ER) | payer MEDICARE, MEDICAID ==
[~2017-03-14] VITALS: Ht 172.7 cm; Wt 108.0 kg
[~2017-03-14 07:37] MED LIST changes: -LEVA750T9 PO; +MOBI7.5T PO; +SIMV20TA PO
[2017-03-14 07:39] VITALS: BP 160/74; PULSE 83; RESP 18; TEMP 98.7; O2SAT 98
[2017-03-14] MEDS ORDERED: TYLETAB34 PO (07:58)
--- NOTE | 2017-03-14 08:01 | PD ---
HPI Chief Complaint: Musculoskeletal Complaint Time Seen by Provider: 07:48 Travel History International Travel<30 days: No Contact w/Intl Traveler<30days: No Traveled to known affect area: No History of Present Illness HPI The patient was seen and examined in the presence of the nurse. This patient complains of right shoulder pain. This is a chronic problem she's had for going on 2 years now. She is seen orthopedic for this before. He had a flare of pain 6 weeks ago when she fell on her right arm and was seen here and had negative x-rays. No new or acute injury. Pain is worse with movement. No fevers PFSH Past Medical History Arthritis: No Asthma: No Autoimmune Disease: Yes Blood Disorders: No Anxiety: Yes Depression: Yes Heart Rhythm Problems: No Cancer: No Cardiac Catheterization: Yes Cardiovascular Problems: No High Cholesterol: No Chemotherapy: No Chest Pain: Yes Congestive Heart Failure: No COPD: No Cerebrovascular Accident: No Diabetes: Yes Patient Takes Glucophage: Yes Diminished Hearing: No Endocrine: No Gastrointestinal Disorders: No GERD: Yes Genitourinary: No Headaches: Yes Hepatitis: No Hiatal Hernia: No Hypertension: Yes Immune Disorder: No Kidney Stones: Yes Musculoskeletal: No Neurologic: No Psychiatric: No Reproductive: No Respiratory: No Immunizations Current: Yes Migraines: Yes Myocardial Infarction: No Radiation Therapy: No Renal Failure: No Schizophrenia: Yes Seizures: No Sickle Cell Disease: No Sleep Apnea: No Thyroid Disease: No Ulcer: No PNEUMOCCOCAL Vaccine (Year): 2008 ?: Not Menopausal: Yes : 2 Para: 2 Miscarriage: 0 : 0 Tubal Ligation: Yes Past Surgical History Abdominal Surgery: Yes (gall bladder) AICD: No Arteriovenous Shunt: No Cholecystectomy: Yes Coronary Artery Bypass Graft: No Ear Surgery: No Endocrine Surgery: No Eye Surgery: No Genitourinary Surgery: No Gynecologic Surgery: Yes (tubal ligation) Insulin Pump: No Joint Replacement: No Oral Surgery: No Pacemaker: No Tonsillectomy: Yes Other Surgery: No Family History Family Myocardial Infarction: Yes (FATHER) Social History Alcohol Use: No Tobacco Use: No Substance Use: No Allergies-Medications (Allergen,Severity, Reaction): Coded Allergies: No Known Allergies (Verified Adverse Reaction, Unknown, 03/14/17) Reported Meds & Prescriptions Reported Meds & Active Scripts Active Mobic (Meloxicam) 7.5 Mg Tab 7.5 Mg PO DAILY PRN Reported Simvastatin 20 Mg Tab 20 Mg PO DAILY Amlodipine (Amlodipine Besylate) 5 Mg Tab 5 Mg PO DAILY Buspirone (Buspirone HCl) 30 Mg Tab 30 Mg PO TID Clonidine ER 12 HR (Clonidine HCl) 0.1 Mg Tab 0.1 Mg PO TID Vistaril (Hydroxyzine Pamoate) 50 Mg Cap 50 Mg PO TID Zestoretic (Lisinopril-Hctz) 20-12.5 Mg Tab 1 Tab PO DAILY Metformin (Metformin HCl) 500 Mg Tab 500 Mg PO BID With meals Propranolol (Propranolol HCl) 20 Mg Tab 20 Mg PO TID Trazodone (Trazodone HCl) 300 Mg Tab 300 Mg PO HS Trihexyphenidyl (Trihexyphenidyl HCl) 5 Mg Tab 5 Mg PO BID Geodon (Ziprasidone) 60 Mg Cap 60 Mg PO BID Gabapentin 300 Mg Cap 300 Mg PO TID Review of Systems General / Constitutional: No: Fever HENT: No: Headaches Cardiovascular: No: Chest Pain or Discomfort Respiratory: No: Cough Physical Exam Narrative SKIN: Focused skin assessment reveals no rash or ulcers. Skin is warm and dry. Palpation shows no induration or nodules. Psych: Normal mood and affect. Normal insight and judgment. Right shoulder: Good range of motion. No bruising or deformity. Neurovascularly intact upper extremity Has pain with most range of motion Data Data Last Documented VS Vital Signs Date Time Temp Pulse Resp B/P (MAP) Pulse Ox O2 Delivery O2 Flow Rate FiO2 03/14/17 07:39 98.7 83 18 160/74 (102) 98 Orders Orders Support Splint (03/14/17 07:57) Ed Discharge Order (03/14/17 07:57) MDM Medical Decision Making Medical Screen Exam Complete: Yes Emergency Medical Condition: Yes Medical Record Reviewed: Yes Differential Diagnosis Tendinitis, rotator cuff injury, dislocation Narrative Course I have reviewed the patient's electronic medical record. Reviewed her visit from 6 weeks ago including her negative x-rays of the right arm Patient having a flare of chronic right shoulder pain. No indication for studies at this time. I placed her in a sling at her request. I gave her some Tylenol 3 to use as needed for symptom relief Diagnosis Primary Impression: Chronic right shoulder pain Additional Instructions: The patient was advised to follow up with their physician and return if they worsen. The patient was warned about potential sedation for the medications they will receive on prescription. Med/Other Pt SpecificInfo: Prescription(s) given Scripts Acetaminophen-Codeine (Tylenol-Codeine #3) 300-30 mg Tab 1 TAB PO Q4H Y for PAIN, #15 TAB 0 Refills Prov: Femi Love MD 03/14/17 Disposition: 01 DISCHARGE HOME Condition: Stable Femi Love MD Mar 14, 2017 08:01
== END 2017-03-14 08:28 | disposition home or self-care (01) ==
LOC: NEPC 07:37
DX: M25.511 Pain in right shoulder (principal); G89.29 Other chronic pain; F41.9 Anxiety disorder, unspecified; F32.9 Major depressive disorder, single episode, unspecified; E11.9 Type 2 diabetes mellitus without complications; K21.9 Gastro-esophageal reflux disease without esophagitis; I10 Essential (primary) hypertension; F20.9 Schizophrenia, unspecified; Z87.442 Personal history of urinary calculi
CPT/HCPCS: 99283

== ENCOUNTER 2017-03-19 21:54 | Observation (INO) | payer MEDICARE, MEDICAID ==
[~2017-03-19] VITALS: Ht 167.6 cm; Wt 105.0 kg
[~2017-03-19 21:54] MED LIST changes: +TYLETAB34 PO
[2017-03-19 21:55] VITALS: BP 177/94; PULSE 85; RESP 24; TEMP 99; O2SAT 98
[2017-03-20] VITALS (9 sets, daily range): BP systolic 115–152; BP diastolic 69–99; PULSE 56–77; RESP 12–24; O2SAT 94–100
--- NOTE | 2017-03-20 02:36 | PD ---
HPI Chief Complaint: Cardiac Complaint Time Seen by Provider: 02:38 Travel History International Travel<30 days: No Contact w/Intl Traveler<30days: No Traveled to known affect area: No History of Present Illness HPI 56-year-old female presents to the emergency department for chest pain since Ant retrosternal in nature with history of diabetes hypertension and dyslipidemia. Patient denies any known history of cardiac disease. Patient denies having any previous evaluation with stress test. Patient also has mental health issues. Patient denies any injury or fall. Patient denies pleuritic chest pain or shortness of breath. Patient's had no nausea vomiting referred neck jaw back shoulder arm or abdominal pain. Patient's had no fever or chills. Patient rates her pain 8/10 in intensity. Patient is unable to identify exacerbating or alleviating factors. PFSH Past Medical History Narrative Medical anxiety depression dyslipidemia diabetes hypertension and schizophrenia family history RI no tobacco use nursing notes reviewed Arthritis: No Asthma: No Autoimmune Disease: Yes Blood Disorders: No Anxiety: Yes Depression: Yes Heart Rhythm Problems: No Cancer: No Cardiac Catheterization: Yes Cardiovascular Problems: No High Cholesterol: No Chemotherapy: No Chest Pain: Yes Congestive Heart Failure: No COPD: No Cerebrovascular Accident: No Diabetes: Yes Patient Takes Glucophage: Yes (METFORMIN ) Diminished Hearing: No Endocrine: No Gastrointestinal Disorders: No GERD: Yes Genitourinary: No Headaches: Yes Hepatitis: No Hiatal Hernia: No Hypertension: Yes Immune Disorder: No Kidney Stones: Yes Musculoskeletal: No Neurologic: No Psychiatric: No Reproductive: No Respiratory: No Immunizations Current: Yes Migraines: Yes Myocardial Infarction: No Radiation Therapy: No Renal Failure: No Schizophrenia: Yes Seizures: No Sickle Cell Disease: No Sleep Apnea: No Thyroid Disease: No Ulcer: No PNEUMOCCOCAL Vaccine (Year): 2008 ?: Not Menopausal: Yes : 2 Para: 2 Miscarriage: 0 : 0 Tubal Ligation: Yes Past Surgical History Abdominal Surgery: Yes (gall bladder) AICD: No Arteriovenous Shunt: No Cholecystectomy: Yes Coronary Artery Bypass Graft: No Ear Surgery: No Endocrine Surgery: No Eye Surgery: No Genitourinary Surgery: No Gynecologic Surgery: Yes (tubal ligation) Insulin Pump: No Joint Replacement: No Oral Surgery: No Pacemaker: No Tonsillectomy: Yes Other Surgery: No Family History Family Myocardial Infarction: Yes (FATHER) Social History Alcohol Use: No Tobacco Use: No Substance Use: No Allergies-Medications (Allergen,Severity, Reaction): Coded Allergies: No Known Allergies (Verified Adverse Reaction, Unknown, 03/20/17) Reported Meds & Prescriptions Reported Meds & Active Scripts Active Tylenol-Codeine #3 (Acetaminophen-Codeine) 300-30 mg Tab 1 Tab PO Q4H PRN Reported Simvastatin 20 Mg Tab 20 Mg PO DAILY Amlodipine (Amlodipine Besylate) 5 Mg Tab 5 Mg PO DAILY Buspirone (Buspirone HCl) 30 Mg Tab 30 Mg PO TID Clonidine ER 12 HR (Clonidine HCl) 0.1 Mg Tab 0.1 Mg PO TID Vistaril (Hydroxyzine Pamoate) 50 Mg Cap 50 Mg PO TID Zestoretic (Lisinopril-Hctz) 20-12.5 Mg Tab 1 Tab PO DAILY Metformin (Metformin HCl) 500 Mg Tab 500 Mg PO BID With meals Propranolol (Propranolol HCl) 20 Mg Tab 20 Mg PO TID Trazodone (Trazodone HCl) 300 Mg Tab 300 Mg PO HS Trihexyphenidyl (Trihexyphenidyl HCl) 5 Mg Tab 5 Mg PO BID Geodon (Ziprasidone) 60 Mg Cap 60 Mg PO BID Gabapentin 300 Mg Cap 300 Mg PO TID Review of Systems Except as stated in HPI: all other systems reviewed are Neg General / Constitutional: No: Fever, Chills HENT: No: Congestion Cardiovascular: Positive: Chest Pain or Discomfort Respiratory: No: Shortness of Breath Gastrointestinal: No: Nausea, Vomiting, Abdominal Pain Genitourinary: No: Flank Pain Musculoskeletal: No: Myalgias, Arthralgias Skin: No Rash Neurologic: No: Weakness Psychiatric: No: Anxiety Hematologic/Lymphatic: No: Lymph Node Enlargement Physical Exam Narrative GENERAL: Well-developed well-nourished female in no acute distress no respiratory distress SKIN: Warm and dry. HEAD: Normocephalic. EYES: No scleral icterus. No injection or drainage. NECK: Supple, trachea midline. No JVD or lymphadenopathy. CARDIOVASCULAR: Regular rate and rhythm without murmurs, gallops, or rubs. Chest wall: Mild tenderness to direct palpation with mild reproducible component to chest pain RESPIRATORY: Breath sounds equal bilaterally. No accessory muscle use. GASTROINTESTINAL: Abdomen soft, non-tender, nondistended. MUSCULOSKELETAL: No cyanosis, or edema. BACK: Nontender without obvious deformity. No CVA tenderness. Data Data Last Documented VS Vital Signs Date Time Temp Pulse Resp B/P (MAP) Pulse Ox O2 Delivery O2 Flow Rate FiO2 03/20/17 03:14 74 19 122/74 (90) 95 Room Air 03/19/17 21:55 99.0 Orders Orders Electrocardiogram (03/20/17 02:11) Complete Blood Count With Diff (03/20/17 02:11) Basic Metabolic Panel (Bmp) (03/20/17 02:11) Ckmb (Isoenzyme) Profile (03/20/17 02:11) Troponin I (03/20/17 02:11) Chest, Single Ap (03/20/17 02:11) Iv Access Insert/Monitor (03/20/17 02:11) Ecg Monitoring (03/20/17 02:11) Oxygen Administration (03/20/17 02:11) Oximetry (03/20/17 02:11) Act Partial Throm Time (Ptt) (03/20/17 02:26) Prothrombin Time / Inr (Pt) (03/20/17 02:26) Aspirin Chew (Aspirin Chew) (03/20/17 02:45) Nitroglycerin Sl (Nitrostat Sl) (03/20/17 02:45) CKMB (03/20/17 02:29) CKMB% (03/20/17 02:29) Ketorolac Inj (Toradol Inj) (03/20/17 04:15) Admit Order (Ed Use Only) (03/20/17 ) Engineering Mechanic / Telemetry ELIOT.Q8H (03/20/17 04:47) Diet Heart Healthy (03/20/17 Breakfast) Activity Oob With Assistance (03/20/17 04:47) Notify Dr: Other (03/20/17 04:47) Activity Bed Rest With Brp (03/20/17 04:47) Vital Signs (Adult) Q4H (03/20/17 04:47) Cardiac Rhythm .As Directed (03/20/17 04:47) Notify Dr: Other .PRN (03/20/17 04:47) Notify Parameters (03/20/17 04:47) Resp Oxygen Nasal Cannula (03/20/17 ) Ckmb (Isoenzyme) Profile (03/20/17 05:30) Ckmb (Isoenzyme) Profile (03/20/17 08:30) Troponin I (03/20/17 05:30) Troponin I (03/20/17 08:30) Electrocardiogram (03/20/17 05:30) Electrocardiogram (03/20/17 08:30) ^ Obtain (03/20/17 04:47) Sodium Chloride 0.9% Flush (Ns Flush) (03/20/17 05:00) Sodium Chloride 0.9% Flush (Ns Flush) (03/20/17 09:00) Aspirin (Aspirin) (03/20/17 09:00) Engineering Mechanic / Telemetry ELIOT.Q8H (03/20/17 04:47) Labs Laboratory Tests Test 03/20/17 02:29 White Blood Count 10.1 TH/MM3 Red Blood Count 4.75 MIL/MM3 Hemoglobin 12.1 GM/DL Hematocrit 38.3 % Mean Corpuscular Volume 80.6 FL Mean Corpuscular Hemoglobin 25.5 PG Mean Corpuscular Hemoglobin Concent 31.7 % Red Cell Distribution Width 14.4 % Platelet Count 213 TH/MM3 Mean Platelet Volume 9.0 FL Neutrophils (%) (Auto) 61.0 % Lymphocytes (%) (Auto) 29.1 % Monocytes (%) (Auto) 8.6 % Eosinophils (%) (Auto) 0.4 % Basophils (%) (Auto) 0.9 % Neutrophils # (Auto) 6.2 TH/MM3 Lymphocytes # (Auto) 2.9 TH/MM3 Monocytes # (Auto) 0.9 TH/MM3 Eosinophils # (Auto) 0.0 TH/MM3 Basophils # (Auto) 0.1 TH/MM3 CBC Comment DIFF FINAL Differential Comment Prothrombin Time 10.1 SEC Prothromb Time International Ratio 1.0 RATIO Activated Partial Thromboplast Time 23.3 SEC Blood Urea Nitrogen 17 MG/DL Creatinine 0.97 MG/DL Random Glucose 112 MG/DL Calcium Level 9.1 MG/DL Sodium Level 140 MEQ/L Potassium Level 4.0 MEQ/L Chloride Level 106 MEQ/L Carbon Dioxide Level 27.3 MEQ/L Anion Gap 7 MEQ/L Estimat Glomerular Filtration Rate 72 ML/MIN Total Creatine Kinase 128 U/L Creatine Kinase MB 1.5 NG/ML Troponin I LESS THAN 0.02 NG/ML [facility] Medical Decision Making Medical Screen Exam Complete: Yes Emergency Medical Condition: Yes Medical Record Reviewed: Yes Interpretation(s) EKG: Normal sinus rhythm rate 65 nonspecific T wave changes no acute ST elevation or injury pattern noted CK 128, not elevated cervical troponin I less than 0.02, not elevated Last Impressions Chest X-Ray 03/20/17 0211 Signed Impressions: Service Date/Time: Monday, March 20, 2017 02:40 - CONCLUSION: No acute disease. No significant change has occurred. Bertram Cason MD CBC & BMP Diagram 03/20/17 02:29 Calcium Level 9.1 Vital Signs Date Time Temp Pulse Resp B/P (MAP) Pulse Ox O2 Delivery O2 Flow Rate FiO2 03/20/17 03:14 74 19 122/74 (90) 95 Room Air 03/20/17 03:02 77 18 138/80 (99) 94 Room Air 03/20/17 02:52 18 95 Room Air 03/20/17 02:40 66 18 132/90 (104) 95 Room Air 03/19/17 21:55 99.0 85 24 177/94 (121) 98 Differential Diagnosis Chest pain, atypical chest pain, costochondritis, pleurisy, ACS, RI, uncontrolled hypertension, viral syndrome, esophageal spasm, aortic dissection, PE, pneumonia Narrative Course Patient placed on monitoring engineer IV access obtained specimens collected and sent for resulting EKG performed shows no acute ST elevation or injury pattern; patient administered aspirin and sublingual nitroglycerin Patient rates patient lay for lab results voicing no concerns or complaints other than some muscular skeletal component to chest pain/chest wall pain patient received Toradol 30 mg IV Versed cardiac enzymes are found to be in normal range. Patient's history of age 56 family history of RI diabetes hypertension and dyslipidemia will proceed with patient being an observation admission to chest pain center to further delineate etiology of chest pain. Physician Communication Physician Communication plan [address] Diagnosis Primary Impression: Chest pain Qualified Codes: R07.2 - Precordial pain Additional Impression: Anterior chest wall pain Admitting Information Admitting Physician Requests: Observation Mary Rachel MD Mar 20, 2017 02:36
[2017-03-20 02:40] LABS: AUTOMATED NEUTROPHIL # 6.2 TH/MM3 (1.8-7.7); BASOPHIL # 0.1 TH/MM3 (0-0.2); BASOPHIL % 0.9 % (0.0-2.0); EOSINOPHIL % 0.4 % (0.0-4.0); HEMATOCRIT 38.3 % (35.0-46.0); HEMOGLOBIN 12.1 GM/DL (11.6-15.3); LYMPH % 29.1 % (9.0-44.0); LYMPHOCYTE # 2.9 TH/MM3 (1.0-4.8); MEAN CELL VOLUME 80.6 FL (80.0-100.0); MEAN CORPUSCULAR HEMOGLOBIN 25.5 PG (27.0-34.0); MEAN CORPUSCULAR HGB CONC 31.7 % (32.0-36.0); MONO % 8.6 % (0.0-8.0); MONOCYTE # 0.9 TH/MM3 (0-0.9); PLATELET COUNT 213 TH/MM3 (150-450); RED BLOOD COUNT 4.75 MIL/MM3 (4.00-5.30); RED CELL DISTRIBUTION WIDTH 14.4 % (11.6-17.2); WHITE BLOOD COUNT 10.1 TH/MM3 (4.0-11.0)
[2017-03-20] MEDS ORDERED: ASPIRIN 81 MG CHEW TAB CHEW ONE (02:45)
[2017-03-20] MEDS: NITROGLYCERIN 0.4 MG SL 25 TABS/BTL SL PRN ×3 (02:50→03:15)
[2017-03-20 02:58] LABS: PROTHROMBIN TIME - PATIENT 10.1 SEC (9.8-11.6)
--- NOTE | 2017-03-20 02:58 | RADRPT ---
EXAM DATE/TIME: 03/20/2017 02:40 [facility] COMPARISON: CHEST SINGLE AP, September 04, 2016, 23:51. INDICATIONS : Chest pain. MEDICAL HISTORY : Diabetes mellitus type II. Hypertension SURGICAL HISTORY : None. ENCOUNTER: Initial ACUITY: 1 day PAIN SCORE: 8/10 LOCATION: Bilateral chest FINDINGS: A single view of the chest demonstrates the lungs to be symmetrically aerated without evidence of mas s, infiltrate or effusion. The cardiomediastinal contours are unremarkable. Osseous structures are intact. CONCLUSION: No acute disease. No significant change has occurred. Bertram Cason MD on March 20, 2017 at 2:55 Board Certified Radiologist. This report was verified electronically.
[2017-03-20 03:17] LABS: BICARBONATE 27.3 MEQ/L (21.0-32.0); BLOOD UREA NITROGEN 17 MG/DL (7-18); CALCIUM 9.1 MG/DL (8.5-10.1); CHLORIDE 106 MEQ/L (98-107); CREATININE 0.97 MG/DL (0.50-1.00); GLOMERULAR FILTRATION RATE 72 ML/MIN (>89); GLUCOSE,RANDOM 112 MG/DL (74-106); SODIUM (NA) 140 MEQ/L (136-145); TROPONIN I LESS THAN 0.02 NG/ML (0.02-0.05)
[2017-03-20] MEDS ORDERED: KETOROLAC TROMETHAMINE 30 MG/ML (IVP) VIAL IV PUSH ONE (04:15)
[2017-03-20] MEDS ORDERED: SODIUM CHLORIDE 0.9% FLUSH 10 ML FLUSH IV FLUSH PRN (05:00)
[2017-03-20 08:00] LABS: TROPONIN I LESS THAN 0.02 NG/ML (0.02-0.05)
[2017-03-20] MEDS ORDERED: ACETAMINOPHEN 500 MG CPLT PO PRN (08:00)
[2017-03-20] MEDS ORDERED: ONDANSETRON HCL 4 MG/2 ML VIAL IV PUSH PRN (08:00)
[2017-03-20 08:40] LABS: TROPONIN I LESS THAN 0.02 NG/ML (0.02-0.05)
[2017-03-20] MEDS ORDERED: ASPIRIN 325 MG TAB PO SCH (09:00)
[2017-03-20] MEDS ORDERED: SODIUM CHLORIDE 0.9% FLUSH 10 ML FLUSH IV FLUSH SCH (09:00)
--- NOTE | 2017-03-20 10:16 | HHI.HP ---
HPI Service [facility] Primary Care Physician Alberto Lerma MD Chief Complaint CHEST PAIN History of Present Illness Complex presentation of 56 yo black lady with history of diabetes, HTN, major psychiatric diagnosis, migraine, and GERD. She was cleaning her house on and noticed pain in her mid chest. This was pressure like, located in the mid chest, was 8/10, with no radiation. It has lasted for 3 days. It seems to get worse with exertion and is associated with SOB. She is quite heavy. On entering her room she was asleep and a bit difficult to arouse. Once awake she began to rock and complained of severe pain. Quite pleasant and cooperative but clearly anxious. She follows with a local psychiatrist and with Dr. Charles Collado. She was seen for chest pain about a year ago by Dr. Lim who did testing in the office, injected dye and took pictures (nuclear scan?) and reported that her heart was OK. Review of Systems ROS Limitations: Poor Historian Cardiovascular: COMPLAINS OF: See HPI Psychiatric: COMPLAINS OF: Anxiety Endocrine: COMPLAINS OF: Weight gain Past Family Social History Allergies: Coded Allergies: No Known Allergies (Verified Adverse Reaction, Unknown, 03/20/17) Past Medical History Diabetes HTN Hyperlipidemia Anxiety Depression Schizophrenia GERD Migraine Renal Stones Past Surgical History Gallbladder tubal ligation tonsillectomy Reported Medications Reported Meds & Active Scripts Active Tylenol-Codeine #3 (Acetaminophen-Codeine) 300-30 mg Tab 1 Tab PO Q4H PRN Reported Simvastatin 20 Mg Tab 20 Mg PO DAILY Amlodipine (Amlodipine Besylate) 5 Mg Tab 5 Mg PO DAILY Buspirone (Buspirone HCl) 30 Mg Tab 30 Mg PO TID Clonidine ER 12 HR (Clonidine HCl) 0.1 Mg Tab 0.1 Mg PO TID Vistaril (Hydroxyzine Pamoate) 50 Mg Cap 50 Mg PO TID Zestoretic (Lisinopril-Hctz) 20-12.5 Mg Tab 1 Tab PO DAILY Metformin (Metformin HCl) 500 Mg Tab 500 Mg PO BID With meals Propranolol (Propranolol HCl) 20 Mg Tab 20 Mg PO TID Trazodone (Trazodone HCl) 300 Mg Tab 300 Mg PO HS Trihexyphenidyl (Trihexyphenidyl HCl) 5 Mg Tab 5 Mg PO BID Geodon (Ziprasidone) 60 Mg Cap 60 Mg PO BID Gabapentin 300 Mg Cap 300 Mg PO TID Active Ordered Medications Current Medications Medications (Trade) Dose Ordered Sig/Myranda Route Start Time Stop Time Status Last Admin (Nitrostat Sl) 0.4 mg Q5M PRN SL 03/20/17 02:45 03/20/17 03:15 (NS Flush) 2 ml UNSCH PRN IV FLUSH 03/20/17 05:00 (NS Flush) 2 ml BID IV FLUSH 03/20/17 09:00 03/20/17 09:10 (Aspirin) 325 mg DAILY PO 03/20/17 09:00 03/20/17 09:10 (Tylenol) 500 mg Q4H PRN PO 03/20/17 08:00 (Zofran Inj) 4 mg Q6H PRN IV PUSH 03/20/17 08:00 Family History Not pertinent Social History Denies alcohol or tobacco and drugs Physical Exam Vital Signs Vital Signs Date Time Temp Pulse Resp B/P (MAP) Pulse Ox O2 Delivery O2 Flow Rate FiO2 03/20/17 07:54 100 Nasal Cannula 2.00 03/20/17 07:38 Nasal Cannula 2.00 03/20/17 07:36 64 24 152/99 (116) 99 Room Air 03/20/17 05:11 95 03/20/17 03:14 74 19 122/74 (90) 95 Room Air 03/20/17 03:02 77 18 138/80 (99) 94 Room Air 03/20/17 02:52 18 95 Room Air 03/20/17 02:40 66 18 132/90 (104) 95 Room Air 03/19/17 21:55 99.0 85 24 177/94 (121) 98 Physical Exam Obese but WNWD HEENT SAYRA EOMI mucus membrane moist no lesions or masses Neck No JVD masses nodes or bruits Chest Tended mid sternal area. No RWR with good BS CV RSR with no GRM Abd Very obese but no guarding or rebound. Masses cannot be palpated Ext Without CCE Neuro Cranial nerves intact, motion all four is strong and equal Psych appears anxious and exhibits a rocking motion during entire exam Laboratory Laboratory Tests Test 03/20/17 02:29 03/20/17 07:40 White Blood Count 10.1 Red Blood Count 4.75 Hemoglobin 12.1 Hematocrit 38.3 Mean Corpuscular Volume 80.6 Mean Corpuscular Hemoglobin 25.5 Mean Corpuscular Hemoglobin Concent 31.7 Red Cell Distribution Width 14.4 Platelet Count 213 Mean Platelet Volume 9.0 Neutrophils (%) (Auto) 61.0 Lymphocytes (%) (Auto) 29.1 Monocytes (%) (Auto) 8.6 Eosinophils (%) (Auto) 0.4 Basophils (%) (Auto) 0.9 Neutrophils # (Auto) 6.2 Lymphocytes # (Auto) 2.9 Monocytes # (Auto) 0.9 Eosinophils # (Auto) 0.0 Basophils # (Auto) 0.1 CBC Comment DIFF FINAL Differential Comment Prothrombin Time 10.1 Prothromb Time International Ratio 1.0 Activated Partial Thromboplast Time 23.3 Blood Urea Nitrogen 17 Creatinine 0.97 Random Glucose 112 Calcium Level 9.1 Sodium Level 140 Potassium Level 4.0 Chloride Level 106 Carbon Dioxide Level 27.3 Anion Gap 7 Estimat Glomerular Filtration Rate 72 Total Creatine Kinase 128 106 Creatine Kinase MB 1.5 1.3 Troponin I LESS THAN 0.02 LESS THAN 0.02 Result Diagram: 03/20/1722803/20/17228 Imaging Neg Course Has RO for ACS with two enzymes and EKGs so will move to ETT particularly in view of a negative nuclear scan about a year ago. Caprini VTE Risk Assessment Caprini VTE Risk Assessment: No/Low Risk (score <= 1) Caprini Risk Assessment Model Point Value = 1 Point Value = 2 Point Value = 3 Point Value = 5 Age 41-60 Minor surgery BMI > 25 kg/m2 Swollen legs Varicose veins or History of unexplained or recurrent spontaneous Oral contraceptives or hormone replacement Sepsis (< 1 month) Serious lung disease, including pneumonia (< 1 month) Abnormal pulmonary function Acute myocardial infarction Congestive heart failure (< 1 month) History of inflammatory bowel disease Medical patient at bed rest Age 61-74 Arthroscopic surgery Major open surgery (> 45 min) Laparoscopic surgery (> 45 min) Malignancy Confined to bed (> 72 hours) Immobilizing plaster cast Central venous access Age >= 75 History of VTE Family history of VTE Factor V Leiden Prothrombin [id number] Lupus anticoagulant Anticardiolipin antibodies Elevated serum homocysteine Heparin-induced thrombocytopenia Other congenital or acquired thrombophilia Stroke (< 1 month) Elective arthroplasty Hip, pelvis, or leg fracture Acute spinal cord injury (< 1 month) Prophylaxis Regimen Total Risk Factor Score Risk Level Prophylaxis Regimen 0-1 Low Early ambulation 2 Moderate Order ONE of the following: *Sequential Compression Device (SCD) *Heparin 5000 units SQ BID 3-4 Higher Order ONE of the following medications: *Heparin 5000 units SQ TID *Enoxaparin/Lovenox 40 mg SQ daily (WT < 150 kg, CrCl > 30 mL/min) *Enoxaparin/Lovenox 30 mg SQ daily (WT < 150 kg, CrCl > 10-29 mL/min) *Enoxaparin/Lovenox 30 mg SQ BID (WT < 150 kg, CrCl > 30 mL/min) AND/OR *Sequential Compression Device (SCD) 5 or more Highest Order ONE of the following medications: *Heparin 5000 units SQ TID (Preferred with Epidurals) *Enoxaparin/Lovenox 40 mg SQ daily (WT < 150 kg, CrCl > 30 mL/min) *Enoxaparin/Lovenox 30 mg SQ daily (WT < 150 kg, CrCl > 10-29 mL/min) *Enoxaparin/Lovenox 30 mg SQ BID (WT < 150 kg, CrCl > 30 mL/min) AND *Sequential Compression Device (SCD) Mendoza Cote MD Mar 20, 2017 10:16
[2017-03-20] MEDS ORDERED: REGADENOSON INJ 0.4 MG/5 ML SYR ONE (12:53)
--- NOTE | 2017-03-20 13:41 | RADRPT ---
EXAM DATE/TIME: 03/20/2017 11:26 [facility] COMPARISON: No previous studies available for comparison. INDICATIONS : Mid chest pain for one day. Angina. DOSE: 35.0 mCi Tc99m Myoview at stress. 11.0 mCi Tc99m Myoview at rest. 0.4 mg Lexiscan STRESS SYMPTOMS: Chest pain. EJECTION FRACTION: 68% MEDICAL HISTORY : Hypertension. Diabetes mellitus type 2. SURGICAL HISTORY : Tubal ligation. Tonsillectomy. Cholecystectomy. ENCOUNTER: Initial ACUITY: 1 day PAIN SCALE: 8/10 LOCATION: Midsternal chest TECHNIQUE: The patient underwent pharmacologic stress with infusion of prescribed dose. Continuous ECG tracing was monitored during stress. Gated SPECT imaging was performed after stress and conventional SPECT i maging was performed at rest. The examination was performed on a SPECT/CT scanner, both attenuation and non-corrected datasets were reviewed. FINDINGS: DISTRIBUTION: The maximum perfused segment at stress is in the anterior lateralwall. PERFUSION STUDY: The pattern of perfusion at stress is within normal limits. There is a summed stress score of 2. GATED STUDY: There is intact wall motion and thickening without hypokinetic or dyskinetic segments. CONCLUSION: 1. No fixed or reversible wall defects to suggest ischemia or infarction. 2. Normal calculated ejection fraction and wall motion. RISK CATEGORY: Low (<1% Annual Mortality Rate) Carlos Ortiz MD on March 20, 2017 at 13:37 Board Certified Radiologist. This report was verified electronically.
--- NOTE | 2017-03-20 13:52 | HHI.DCPOC ---
Discharge Care Plan Diagnosis: (1) Chest pain, atypical (2) Anxiety (3) H/O diabetes mellitus (4) H/O: HTN (hypertension) Goals to Promote Your Health * To prevent worsening of your condition and complications * To maintain your health at the optimal level Directions to Meet Your Goals Take your medications as prescribed Follow your dietary instruction Follow activity as directed Keep your appointments as scheduled Take your immunizations and boosters as scheduled If your symptoms worsen call your PCP, if no PCP go to Urgent Care Center or Emergency Room Smoking is Dangerous to Your Health. Avoid second hand smoke Call the 24-hour hour crisis hotline for domestic abuse at Cathleen Armando Mar 20, 2017 13:52
--- NOTE | 2017-03-20 14:04 | EKG ---
Date Performed: 03/20/2017 Time Performed: 07:37:40 PTAGE: 56 years EKG: Sinus rhythm NONSPECIFIC ST & T-WAVE ABNORMALITY BORDERLINE ECG NO SIG CHANGE PREVIOUS TRACING : 03/20/2017 01.12 DOCTOR: Mendoza Cote Interpretating Date/Time 03/20/2017 14:03:17
--- NOTE | 2017-03-20 14:08 | EKG ---
Date Performed: 03/20/2017 Time Performed: 01:12:07 PTAGE: 56 years EKG: Sinus rhythm NONSPECIFIC T-WAVE ABNORMALITY BORDERLINE ECG NS ST T CHANGES HAVE IMPROVED PREVIOUS TRACING : 09/06/2016 08.17 DOCTOR: Mendoza Cote Interpretating Date/Time 03/20/2017 14:06:35
--- NOTE | 2017-03-20 14:11 | TR ---
Date Performed: 03/20/2017 Time Performed: 12:24:12 DOCTOR: Mendoza Coet DRUG LIST: CLINICAL HISTORY: CHEST PAIN REASON FOR TEST: Angina REASON FOR ENDING: OBSERVATION: CONCLUSION: Lexiscan stress test was performed under standard four minute protocol. Radionuclide was injected one minute prior to ending the test. No electrocardiographic abormalities were present to suggest ischemia. Nuclear imaging and interpretation are pending. COMMENTS:
--- NOTE | 2017-03-20 14:11 | TR ---
Date Performed: 03/20/2017 Time Performed: 12:07:28 DOCTOR: Mendoza Cote DRUG LIST: CLINICAL HISTORY: CHEST PAIN REASON FOR TEST: Chest pain REASON FOR ENDING: OBSERVATION: CONCLUSION: Ariel protocol attempted. Patient unable to walk safely on treadmill. Will convert n uclear treadmill to lexiscan. COMMENTS:
== END 2017-03-20 15:30 | disposition home or self-care (01) ==
LOC: NEPC 21:54 → NEDA 03-20 04:49 → NEDH 03-20 10:30
PROVIDERS: ADMIT Internal Medicine Cardiovascular Disease; ATTEND Internal Medicine Cardiovascular Disease
DX: R07.2 Precordial pain (principal); F41.9 Anxiety disorder, unspecified; E11.9 Type 2 diabetes mellitus without complications; I10 Essential (primary) hypertension; E78.5 Hyperlipidemia, unspecified; F20.9 Schizophrenia, unspecified; K21.9 Gastro-esophageal reflux disease without esophagitis; Z82.49 Family history of ischemic heart disease and other diseases of the circulatory system; Z79.899 Other long term (current) drug therapy; Z79.84 Long term (current) use of oral hypoglycemic drugs; R94.31 Abnormal electrocardiogram [ECG] [EKG]
CPT/HCPCS: 71045; 78452; 80048; 82550; 82552; 84484; 85025; 85610; 85730; 93005; 93017; 96374; 99285; A9502; G0378; J1885; J2785

== ENCOUNTER 2017-04-11 14:38 | Emergency (ER) | payer MEDICARE, MEDICAID ==
[~2017-04-11 14:38] MED LIST changes: -MOBI7.5T PO
[2017-04-11 14:40] VITALS: BP 128/85; PULSE 93; RESP 16; TEMP 98.5; O2SAT 99
== END 2017-04-11 14:59 | disposition left against medical advice (07) ==
LOC: NED 14:38
DX: R07.9 Chest pain, unspecified (principal); Z53.21 Procedure and treatment not carried out due to patient leaving prior to being seen by health care provider
CPT/HCPCS: 99281

== ENCOUNTER 2017-04-24 06:06 | Emergency (ER) | payer MEDICARE, MEDICAID ==
[~2017-04-24] VITALS: Ht 167.6 cm; Wt 95.5 kg
[2017-04-24 06:08] VITALS: BP 153/89; PULSE 69; RESP 16; TEMP 98.1; O2SAT 97
[2017-04-24 06:22] VITALS: BP 135/85; PULSE 80; RESP 24; O2SAT 97
[2017-04-24 06:28] VITALS: O2SAT 98
--- NOTE | 2017-04-24 06:44 | PD ---
HPI Chief Complaint: Chest Pain Time Seen by Provider: 06:30 Travel History International Travel<30 days: No Contact w/Intl Traveler<30days: No Traveled to known affect area: No History of Present Illness HPI 56-year-old female presents with central chest pain that she has been having intermittently over the past couple months. She states she went to her primary doctor yesterday and placed her on a medication that started with a D for her stomach. She states that that is not helping so she came here. She denies any other specific complaints at this time. She states when she was here a month ago for something similar she had a stress test that was normal. She states she does not think she has had a heart catheterization before. Quality is burning. Severity is moderate. She denies specific modifying factors. PFSH Past Medical History Arthritis: No Asthma: No Autoimmune Disease: Yes Blood Disorders: No Anxiety: Yes Depression: Yes Heart Rhythm Problems: No Cancer: No Cardiac Catheterization: Yes Cardiovascular Problems: No High Cholesterol: No Chemotherapy: No Chest Pain: Yes Congestive Heart Failure: No COPD: No Cerebrovascular Accident: No Diabetes: Yes Patient Takes Glucophage: Yes Diminished Hearing: No Endocrine: No Gastrointestinal Disorders: No GERD: Yes Genitourinary: No Headaches: Yes Hepatitis: No Hiatal Hernia: No Hypertension: Yes Immune Disorder: No Kidney Stones: Yes Musculoskeletal: No Neurologic: No Psychiatric: No Reproductive: No Respiratory: No Immunizations Current: Yes Migraines: Yes Myocardial Infarction: No Radiation Therapy: No Renal Failure: No Schizophrenia: Yes Seizures: No Sickle Cell Disease: No Sleep Apnea: No Thyroid Disease: No Ulcer: No PNEUMOCCOCAL Vaccine (Year): 2008 ?: Not Menopausal: Yes : 2 Para: 2 Miscarriage: 0 : 0 Tubal Ligation: Yes Past Surgical History Abdominal Surgery: Yes (gall bladder) AICD: No Arteriovenous Shunt: No Cholecystectomy: Yes Coronary Artery Bypass Graft: No Ear Surgery: No Endocrine Surgery: No Eye Surgery: No Genitourinary Surgery: No Gynecologic Surgery: Yes (tubal ligation) Insulin Pump: No Joint Replacement: No Oral Surgery: No Pacemaker: No Tonsillectomy: Yes Other Surgery: No Family History Family Myocardial Infarction: Yes (FATHER) Social History Alcohol Use: No Tobacco Use: No Substance Use: No Allergies-Medications (Allergen,Severity, Reaction): Coded Allergies: No Known Allergies (Verified Adverse Reaction, Unknown, 04/24/17) Reported Meds & Prescriptions Reported Meds & Active Scripts Active Ibuprofen 600 Mg Tab 600 Mg PO Q8H PRN Phenergan (Promethazine HCl) 25 Mg Tablet 25 Mg PO Q6H PRN Tylenol-Codeine #3 (Acetaminophen-Codeine) 300-30 mg Tab 1 Tab PO Q4H PRN Reported Simvastatin 20 Mg Tab 20 Mg PO DAILY Amlodipine (Amlodipine Besylate) 5 Mg Tab 5 Mg PO DAILY Buspirone (Buspirone HCl) 30 Mg Tab 30 Mg PO TID Clonidine ER 12 HR (Clonidine HCl) 0.1 Mg Tab 0.1 Mg PO TID Vistaril (Hydroxyzine Pamoate) 50 Mg Cap 50 Mg PO TID Zestoretic (Lisinopril-Hctz) 20-12.5 Mg Tab 1 Tab PO DAILY Metformin (Metformin HCl) 500 Mg Tab 500 Mg PO BID With meals Propranolol (Propranolol HCl) 20 Mg Tab 20 Mg PO TID Trazodone (Trazodone HCl) 300 Mg Tab 300 Mg PO HS Trihexyphenidyl (Trihexyphenidyl HCl) 5 Mg Tab 5 Mg PO BID Geodon (Ziprasidone) 60 Mg Cap 60 Mg PO BID Gabapentin 300 Mg Cap 300 Mg PO TID Review of Systems Except as stated in HPI: all other systems reviewed are Neg Physical Exam Narrative GENERAL: 56 y/o female in no apparent distress SKIN: Focused skin assessment warm/dry. HEAD: Atraumatic. Normocephalic. EYES: No scleral icterus. No injection or drainage. ENT: No nasal bleeding or discharge. Mucous membranes pink and moist. NECK: Trachea midline. No JVD. CARDIOVASCULAR: Regular rate and rhythm. RESPIRATORY: No accessory muscle use. No increased effort GASTROINTESTINAL: Abdomen nondistended. MUSCULOSKELETAL: No obvious deformities. No clubbing. No cyanosis. No edema. NEUROLOGICAL: Awake and alert. Motor grossly within normal limits. Normal speech. PSYCHIATRIC: Appropriate mood and affect; insight and judgment normal. Data Data Last Documented VS Vital Signs Date Time Temp Pulse Resp B/P (MAP) Pulse Ox O2 Delivery O2 Flow Rate FiO2 04/24/17 09:32 100 04/24/17 09:30 56 18 Room Air 04/24/17 06:08 98.1 Orders Orders Electrocardiogram (04/24/17 06:26) Complete Blood Count With Diff (04/24/17 06:26) Basic Metabolic Panel (Bmp) (04/24/17 06:26) Ckmb (Isoenzyme) Profile (04/24/17 06:26) Troponin I (04/24/17 06:26) Chest, Single Ap (04/24/17 06:26) Iv Access Insert/Monitor (04/24/17 06:26) Ecg Monitoring (04/24/17 06:26) Oxygen Administration (04/24/17 06:) Oximetry (04/24/17 06:26) Prothrombin Time / Inr (Pt) (04/24/17 06:26) Act Partial Throm Time (Ptt) (04/24/17 06:26) CKMB (04/24/17 06:30) CKMB% (04/24/17 06:30) Ed Discharge Order (04/24/17 08:57) Ondansetron Odt (Zofran Odt) (04/24/17 09:00) Labs Laboratory Tests Test 04/24/17 06:30 White Blood Count 5.5 TH/MM3 Red Blood Count 4.37 MIL/MM3 Hemoglobin 11.3 GM/DL Hematocrit 34.7 % Mean Corpuscular Volume 79.3 FL Mean Corpuscular Hemoglobin 25.8 PG Mean Corpuscular Hemoglobin Concent 32.5 % Red Cell Distribution Width 13.9 % Platelet Count 218 TH/MM3 Mean Platelet Volume 9.1 FL Neutrophils (%) (Auto) 21.2 % Lymphocytes (%) (Auto) 61.2 % Monocytes (%) (Auto) 11.6 % Eosinophils (%) (Auto) 4.9 % Basophils (%) (Auto) 1.1 % Neutrophils # (Auto) 1.2 TH/MM3 Lymphocytes # (Auto) 3.4 TH/MM3 Monocytes # (Auto) 0.6 TH/MM3 Eosinophils # (Auto) 0.3 TH/MM3 Basophils # (Auto) 0.1 TH/MM3 CBC Comment AUTO DIFF Differential Comment AUTO DIFF CONFIRMED Prothrombin Time 10.8 SEC Prothromb Time International Ratio 1.1 RATIO Activated Partial Thromboplast Time 23.1 SEC Blood Urea Nitrogen 16 MG/DL Creatinine 0.82 MG/DL Random Glucose 104 MG/DL Calcium Level 8.9 MG/DL Sodium Level 140 MEQ/L Potassium Level 3.3 MEQ/L Chloride Level 106 MEQ/L Carbon Dioxide Level 29.2 MEQ/L Anion Gap 5 MEQ/L Estimat Glomerular Filtration Rate 88 ML/MIN Total Creatine Kinase 230 U/L Creatine Kinase MB 1.9 NG/ML Creatine Kinase MB % 0.8 % Troponin I LESS THAN 0.02 NG/ML MDM Medical Decision Making Medical Screen Exam Complete: Yes Emergency Medical Condition: Yes Medical Record Reviewed: Yes (pmh confirmed, multiple visits for similar, stress negative 1 month ago. 2007 cath was normal) Differential Diagnosis Musculoskeletal, gastritis, atypical cardiac Narrative Course We will check blood work, EKG, chest x-ray and reevaluate Physician Communication Physician Communication dr hayden to follow workup and reevaluate Scripts Ibuprofen (Ibuprofen) 600 Mg Tab 600 MG PO Q8H Y for PAIN, #20 TAB 0 Refills Prov: Phillip Hayden MD 04/24/17 Promethazine (Phenergan) 25 Mg Tablet 25 MG PO Q6H Y for NAUSEA OR VOMITING, #10 TAB 0 Refills Prov: Phillip Hayden MD 04/24/17 Emy Borjas MD Apr 24, 2017 06:44
[2017-04-24 06:49] LABS: AUTOMATED NEUTROPHIL # 1.2 TH/MM3 (1.8-7.7); BASOPHIL # 0.1 TH/MM3 (0-0.2); BASOPHIL % 1.1 % (0.0-2.0); EOSINOPHIL # 0.3 TH/MM3 (0-0.4); EOSINOPHIL % 4.9 % (0.0-4.0); HEMATOCRIT 34.7 % (35.0-46.0); HEMOGLOBIN 11.3 GM/DL (11.6-15.3); LYMPH % 61.2 % (9.0-44.0); LYMPHOCYTE # 3.4 TH/MM3 (1.0-4.8); MEAN CELL VOLUME 79.3 FL (80.0-100.0); MEAN CORPUSCULAR HEMOGLOBIN 25.8 PG (27.0-34.0); MEAN CORPUSCULAR HGB CONC 32.5 % (32.0-36.0); MEAN PLATELET VOLUME 9.1 FL (7.0-11.0); MONO % 11.6 % (0.0-8.0); MONOCYTE # 0.6 TH/MM3 (0-0.9); NEUT % 21.2 % (16.0-70.0); PLATELET COUNT 218 TH/MM3 (150-450); RED BLOOD COUNT 4.37 MIL/MM3 (4.00-5.30); RED CELL DISTRIBUTION WIDTH 13.9 % (11.6-17.2); WHITE BLOOD COUNT 5.5 TH/MM3 (4.0-11.0)
--- NOTE | 2017-04-24 06:49 | RADRPT ---
EXAM DATE/TIME: 04/24/2017 06:37 [facility] COMPARISON: CHEST SINGLE AP, March 20, 2017, 2:40. INDICATIONS : Chest pain. MEDICAL HISTORY : Diabetes mellitus type II. Hypertension SURGICAL HISTORY : None. ENCOUNTER: Initial ACUITY: 1 day PAIN SCORE: 8/10 LOCATION: Bilateral chest FINDINGS: The lungs are clear without infiltrate, nodule, or mass. There is no appreciable pleural effusion fo r technique. Heart and mediastinum are unremarkable. CONCLUSION: No acute cardiopulmonary disease. Uzma Collins MD on April 24, 2017 at 6:47 Board Certified Radiologist. This report was verified electronically.
[2017-04-24 06:58] LABS: INTERNATIONAL NORMALIZED RATIO 1.1 RATIO; PROTHROMBIN TIME - PATIENT 10.8 SEC (9.8-11.6)
[2017-04-24 07:06] LABS: BICARBONATE 29.2 MEQ/L (21.0-32.0); BLOOD UREA NITROGEN 16 MG/DL (7-18); CALCIUM 8.9 MG/DL (8.5-10.1); CHLORIDE 106 MEQ/L (98-107); CREATININE 0.82 MG/DL (0.50-1.00); GLOMERULAR FILTRATION RATE 88 ML/MIN (>89); GLUCOSE,RANDOM 104 MG/DL (74-106); SODIUM (NA) 140 MEQ/L (136-145)
[2017-04-24 07:09] LABS: TROPONIN I LESS THAN 0.02 NG/ML (0.02-0.05)
[2017-04-24] MEDS ORDERED: ONDANSETRON ODT 4 MG TAB PO ONE (09:00)
[2017-04-24] MEDS ORDERED: PROM25TA10 PO (09:01)
[2017-04-24] MEDS ORDERED: IBUP-232 PO (09:01)
--- NOTE | 2017-04-24 09:02 | PD ---
Data Data Last Documented VS Vital Signs Date Time Temp Pulse Resp B/P (MAP) Pulse Ox O2 Delivery O2 Flow Rate FiO2 04/24/17 06:28 98 Room Air 04/24/17 06:22 80 24 04/24/17 06:08 98.1 Orders Orders Electrocardiogram (04/24/17 06:26) Complete Blood Count With Diff (04/24/17 06:26) Basic Metabolic Panel (Bmp) (04/24/17 06:26) Ckmb (Isoenzyme) Profile (04/24/17 06:26) Troponin I (04/24/17:26) Chest, Single Ap (04/24/17:26) Iv Access Insert/Monitor (04/24/17:) Ecg Monitoring (04/24/17:) Oxygen Administration (04/24/17:) Oximetry (04/24/17:) Prothrombin Time / Inr (Pt) (04/24/17:26) Act Partial Throm Time (Ptt) (04/24/17 06:26) CKMB (04/24/17 06:30) CKMB% (04/24/17 06:30) Ed Discharge Order (04/24/17 08:57) Ondansetron Odt (Zofran Odt) (04/24/17 09:00) Labs Laboratory Tests Test 04/24/17 06:30 White Blood Count 5.5 TH/MM3 Red Blood Count 4.37 MIL/MM3 Hemoglobin 11.3 GM/DL Hematocrit 34.7 % Mean Corpuscular Volume 79.3 FL Mean Corpuscular Hemoglobin 25.8 PG Mean Corpuscular Hemoglobin Concent 32.5 % Red Cell Distribution Width 13.9 % Platelet Count 218 TH/MM3 Mean Platelet Volume 9.1 FL Neutrophils (%) (Auto) 21.2 % Lymphocytes (%) (Auto) 61.2 % Monocytes (%) (Auto) 11.6 % Eosinophils (%) (Auto) 4.9 % Basophils (%) (Auto) 1.1 % Neutrophils # (Auto) 1.2 TH/MM3 Lymphocytes # (Auto) 3.4 TH/MM3 Monocytes # (Auto) 0.6 TH/MM3 Eosinophils # (Auto) 0.3 TH/MM3 Basophils # (Auto) 0.1 TH/MM3 CBC Comment AUTO DIFF Differential Comment AUTO DIFF CONFIRMED Prothrombin Time 10.8 SEC Prothromb Time International Ratio 1.1 RATIO Activated Partial Thromboplast Time 23.1 SEC Blood Urea Nitrogen 16 MG/DL Creatinine 0.82 MG/DL Random Glucose 104 MG/DL Calcium Level 8.9 MG/DL Sodium Level 140 MEQ/L Potassium Level 3.3 MEQ/L Chloride Level 106 MEQ/L Carbon Dioxide Level 29.2 MEQ/L Anion Gap 5 MEQ/L Estimat Glomerular Filtration Rate 88 ML/MIN Total Creatine Kinase 230 U/L Creatine Kinase MB 1.9 NG/ML Creatine Kinase MB % 0.8 % Troponin I LESS THAN 0.02 NG/ML [facility] Medical Record Reviewed: Yes Supervised Visit with ALFREDO: No Narrative Course CBC & BMP Diagram 04/24/17 06:30 Calcium Level 8.9 Troponin is undetectable The EKG shows sinus rhythm with a nonspecific ST morphology in the precordial leads Patient found resting comfortably at 8:40 AM. Results discussed. Review of the prior records shows reassuring results today. Return precautions discussed. Vital Signs Date Time Temp Pulse Resp B/P (MAP) Pulse Ox O2 Delivery O2 Flow Rate FiO2 04/24/17 06:28 98 Room Air 04/24/17 06:22 80 24 135/85 (102) 97 Room Air 04/24/17 06:08 98.1 69 16 153/89 (110) 97 Diagnosis Primary Impression: Chest pain, atypical Additional Impression: Nausea Referrals: Primary Care Physician call for appointment Med/Other Pt SpecificInfo: Prescription(s) given Scripts Ibuprofen (Ibuprofen) 600 Mg Tab 600 MG PO Q8H Y for PAIN, #20 TAB 0 Refills Prov: Phillip Tam MD 04/24/17 Promethazine (Phenergan) 25 Mg Tablet 25 MG PO Q6H Y for NAUSEA OR VOMITING, #10 TAB 0 Refills Prov: Phillip Tam MD 04/24/17 Disposition: 01 DISCHARGE HOME Condition: Stable Phillip Tam MD Apr 24, 2017 09:02
[2017-04-24 09:30] VITALS: BP 105/62; PULSE 56; RESP 18; O2SAT 97
--- NOTE | 2017-04-24 14:45 | EKG ---
Date Performed: 04/24/2017 Time Performed: 06:24:21 PTAGE: 56 years EKG: Sinus rhythm NONSPECIFIC T-WAVE ABNORMALITY BORDERLINE ECG Since PREVIOUS TRACING , no significant change noted PREVIOUS TRACIN03/20/2017 07.37 DOCTOR: Jese Lantigua Interpretating Date/Time 04/24/2017 14:44:27
== END 2017-04-24 09:38 | disposition home or self-care (01) ==
LOC: NEPC 06:06
DX: R07.89 Other chest pain (principal); R11.0 Nausea; R94.31 Abnormal electrocardiogram [ECG] [EKG]; F41.9 Anxiety disorder, unspecified; E11.9 Type 2 diabetes mellitus without complications; K21.9 Gastro-esophageal reflux disease without esophagitis; I10 Essential (primary) hypertension; F20.9 Schizophrenia, unspecified; Z87.442 Personal history of urinary calculi
CPT/HCPCS: 71045; 80048; 82550; 82552; 84484; 85025; 85610; 85730; 93005; 99285